=== PATIENT | male | born 2000 | race African-American/Black ===

== ENCOUNTER 2022-04-19 18:44 | Emergency (ER) | payer OTHER, SELFPAY ==
[2022-04-19 19:02] VITALS: BP 124/65; PULSE 77; RESP 16; TEMP 37.9; O2SAT 100; BMI 25.1
--- NOTE | 2022-04-19 19:05 | ED_ITS ---
HPI - General Adult General Time Seen by Provider: 19:05 <Miya Ford MD - Last Filed: 04/19/22 20:41> Date Seen: 04/19/22 <Miya Ford MD - Last Filed: 04/19/22 20:41> Chief complaint: Sore Throat <Miya Ford MD - Last Filed: 04/19/22 20:41> Stated complaint: Swollen Tonsils <Miya Ford MD - Last Filed: 04/19/22 20:41> Time Seen by Provider: 04/19/22 18:47 <Miya Ford MD - Last Filed: 04/19/22 20:41> Source: patient and RN notes reviewed <Miya Ford MD - Last Filed: 04/19/22 20:41> Mode of arrival: ambulatory <Miya Ford MD - Last Filed: 04/19/22 20:41> Limitations: no limitations <Miya Ford MD - Last Filed: 04/19/22 20:41> History of Present Illness HPI narrative: This 21-year-old male is coming in an with bilateral sore throat, swollen tonsils and pain. He has had a history of peritonsillar abscess, had his last incision and drainage of a right peritonsillar abscess 04/20/2021. He had repeat tonsillitis and a left peritonsillar abscess managed clinically within over night hospitalization May 01 to 2020. He reportedly had 2 prior incision and drainage of peritonsillar abscesses prior. He became ill with a sore throat on Tuesday, today is Tuesday. He had progressive worsening sore throat today. He has felt chilled today but not necessarily had any fevers. He last took ibuprofen this morning. He does believe he could swallow Tylenol. He has had a little right otalgia. He remembers having mono when he was younger. No cough, no nausea vomiting or diarrhea, no abdominal pain. <Miya Al MD - Last Filed: 04/19/22 20:41> Related Data Home medications: Home Medications Medication Instructions Recorded Confirmed No Known Home Medications 04/19/22 04/19/22 <Miya Ford MD - Last Filed: 04/19/22 20:41> Allergies/adverse reactions: Allergies Allergy/AdvReac Type Severity Reaction Status Date / Time No Known Drug Allergies Allergy Verified 04/19/22 19:05 <Miya Ford MD - Last Filed: 04/19/22 20:41> [facility] Medical History: Medical History (Updated 04/19/22 @ 20:41 by Miya Ford MD) Tonsil, abscess <Miya Ford MD - Last Filed: 04/19/22 20:41> Social History: Social History Smoking Status: Never smoker Do you use any of these nicotine containing products: None How often do you have a drink containing alcohol: never AUDIT-C Alcohol total score: 0 Non-prescribed substance use: denies use <Miya Ford MD - Last Filed: 04/19/22 20:41> Exam Const: Vital Signs, click to edit/add: Vital Signs - 24 hr 04/19/22 19:02 Temperature 100.3 F H Pulse Rate [Right Pulse Oximeter] 77 Respiratory Rate 16 Blood Pressure [Ri ght Upper Arm] 124/65 Pulse Oximetry 100 Oxygen Delivery Me thod Room Air <Miya Ford MD - Last Filed: 04/19/22 20:41> Vital Signs, click to edit/add: Vital Signs - 24 hr 04/19/22 19:02 Temperature 100.3 F H Pulse Rate [Right Pulse Oximeter] 77 Respiratory Rate 16 Blood Pressure [Ri ght Upper Arm] 124/65 Pulse Oximetry 100 Oxygen Delivery Me thod Room Air <Kev Robles MD - Last Filed: 04/19/22 23:31> Documenting provider has reviewed patient's vital signs: yes <Miya Ford MD - Last Filed: 04/19/22 20:41> Common normals: no apparent distress, average body habitus, oriented x3, no limitations, healthy appearing and alert <Miya Ford MD - Last Filed: 04/19/22 20:41> General appearance: cooperative, comfortable and well kempt <Miya Ford MD - Last Filed: 04/19/22 20:41> Nutritional appearance: thin <Miya Ford MD - Last Filed: 04/19/22 20:41> HENMT: Common normals: normocephalic, head/scalp atraumatic, hearing grossly normal bilaterally, external ears normal, EAC's normal, TM's normal bilaterally (Some cerumen but I can see most of the TMs ), external nose normal, nasal mucous membranes and turbinates normal, moist oral mucous membranes, dentition normal and gingiva normal <MD Shawn Lagunas Last Filed: 04/19/22 20:41> Head and scalp: normocephalic and atraumatic <Miya Ford MD - Last Filed: 04/19/22 20:41> Nose: external nose normal and nasal mucous membranes and turbinates normal <MD Shawn Lagunas Last Filed: 04/19/22 20:41> External ear: external ears normal <MD Shawn Lagunas Last Filed: 04/19/22 20:41> External auditory canal: EAC's normal <MD Shawn Lagunas Last Filed: 04/19/22 20:41> Tympanic membrane: TM's normal bilaterally (Some cerumen but I can see most of the TMs ) <Miya Ford MD - Last Filed: 04/19/22 20:41> Mouth: tongue normal and dysphonia (Some muffling to his voice, able to manage secretions) <MD Shawn Lagunas Last Filed: 04/19/22 20:41> Throat: tonsils abnormal (Symmetric bilateral tonsillar enlargement, mild white exudate) <MD Shawn Lagunas Last Filed: 04/19/22 20:41> Other: Tonsils are nearly touching <MD Shawn Lagunas Last Filed: 04/19/22 20:41> Eye: Common normals: PERRL, EOMs intact bilaterally, conjunctivae normal and no scleral icterus <Miya Ford MD - Last Filed: 04/19/22 20:41> Conjunctiva: conjunctiva(e) normal <Miya Ford MD - Last Filed: 04/19/22 20:41> Pupil: PERRL <Miya Ford MD - Last Filed: 04/19/22 20:41> Neck & C-Spine: Common normals: full ROM, supple, no meningeal signs, no JVD and thyroid normal <Miya Ford MD - Last Filed: 04/19/22 20:41> General: lymphadenopathy (Bilateral anterior) <Miya Ford MD - Last Filed: 04/19/22 20:41> Thyroid: thyroid normal <Miya Ford MD - Last Filed: 04/19/22 20:41> Resp: Common normals: normal respiratory effort, no retractions, no use of accessory muscles and clear to auscultation bilaterally <Miya Al MD - Last Filed: 04/19/22 20:41> Auscultation: clear to auscultation bilaterally <Miya Ford MD - Last Filed: 04/19/22 20:41> Cardio: Common normals: no JVD, regular rate, regular rhythm, S1 normal heart sound, S2 normal heart sound, no gallops, no clicks and no murmurs <Miya Ford MD - Last Filed: 04/19/22 20:41> Rate: regular rate <Miya Ford MD - Last Filed: 04/19/22 20:41> Rhythm: regular rhythm <Miya Ford MD - Last Filed: 04/19/22 20:41> Heart sounds: S1 normal and S2 normal <Miya Ford MD - Last Filed: 04/19/22 20:41> GI: Common normals: Normal to inspection, nondistended, normoactive bowel sounds present, soft to palpation, non-tender, no hepatosplenomegaly and no masses <Miya Ford MD - Last Filed: 04/19/22 20:41> Palpation: soft and no hepatosplenomegaly <Miya oFrd MD - Last Filed: 04/19/22 20:41> Extremity: Common normals: normal to inspection, full ROM, normal capillary refill, no joint enlargement, no clubbing, cyanosis or edema and no pedal edema <Miya Ford MD - Last Filed: 04/19/22 20:41> Neuro: Common normals: oriented x3 <Miya Ford MD - Last Filed: 04/19/22 20:41> Sensorium/orientation: alert <Miya Ford MD - Last Filed: 04/19/22 20:41> Meningeal signs: no meningeal signs <Miya Ford MD - Last Filed: 04/19/22 20:41> Gait (neuro): normal gait <Miya Ford MD - Last Filed: 04/19/22 20:41> Psych: Appearance: well kempt <Miya Ford MD - Last Filed: 04/19/22 20:41> Course Course Hospital Course: This definitely appears to be tonsillitis, will rule out peritonsillar abscess with a soft tissue neck CT IV contrast given his history. We will obviously stab lotion IV, start IV fluids. I am going to given 10 mg IV dexamethasone. Will obtain his labs, he will need antibiotics likely, considering Unasyn at this time. Will get a COVID screen in case he might need another incision and drainage. I have spoken with him and discussed with him that ultimately when he is better he really needs to have a tonsillectomy. He obviously will need that information from ENT and was stressed to him that he really needs to follow up with ENT outpatient. <Miya Ford MD - Last Filed: 04/19/22 20:41> Reevaluation(s) Reevaluation #1: I have called [facility] regarding possible transfer this patient. He needs [facility]. [place] unfortunately not even sure we do have ENT coverage here this evening, we certainly do not have bed availability at this time. With this patient's CT finding having almost 4 peritonsillar abscesses and possible parapharyngeal cellulitis, feel that it is safest for him to transfer. We are waiting call back from ENT service at [facility]. I do know that [facility] system is on magenta, meaning absolutely no transfers. <Miya Ford MD - Last Filed: 04/19/22 20:41> Time: 20:35 <Miya Ford MD - Last Filed: 04/19/22 20:41> Vital Signs Vital signs: Initial Vital Signs Temperature 100.3 F H 04/19/22 19:02 Temperature Source Temporal Artery Scan 04/19/22 19:02 Pulse Rate 77 04/19/22 19:02 Pulse Rhythm 04/19/22 19:02 Respiratory Rate 16 04/19/22 19:02 Blood Pressure 124/65 04/19/22 19:02 Blood Pressure Mean 84 04/19/22 19:02 Blood Pressure Position Sitting 04/19/22 19:02 Pulse Oximetry 100 04/19/22 19:02 Oxygen Delivery Method 04/19/22 19:02 Vital Signs Temperature 100.3 F H 04/19/22 19:02 Pulse Rate 77 04/19/22 19:02 Respiratory Rate 16 04/19/22 19:02 Blood Pressure 124/65 04/19/22 19:02 Pulse Oximetry 100 04/19/22 19:02 Oxygen Delivery Method 04/19/22 19:02 Temperature 100.3 F H 04/19/22 19:02 Pulse Rate 77 04/19/22 19:02 Respiratory Rate 16 04/19/22 19:02 Blood Pressure 124/65 04/19/22 19:02 Pulse Oximetry 100 04/19/22 19:02 Oxygen Delivery Method 04/19/22 19:02 <Miya Ford MD - Last Filed: 04/19/22 20:41> Initial Vital Signs Temperature 100.3 F H 04/19/22 19:02 Temperature Source Temporal Artery Scan 04/19/22 19:02 Pulse Rate 77 04/19/22 19:02 Pulse Rhythm 04/19/22 19:02 Respiratory Rate 16 04/19/22 19:02 Blood Pressure 124/65 04/19/22 19:02 Blood Pressure Mean 84 04/19/22 19:02 Blood Pressure Position Sitting 04/19/22 19:02 Pulse Oximetry 100 04/19/22 19:02 Oxygen Delivery Method 04/19/22 19:02 Vital Signs Temperature 100.3 F H 04/19/22 19:02 Pulse Rate 77 04/19/22 19:02 Respiratory Rate 16 04/19/22 19:02 Blood Pressure 124/65 04/19/22 19:02 Pulse Oximetry 100 04/19/22 19:02 Oxygen Delivery Method 04/19/22 19:02 Temperature 100.3 F H 04/19/22 19:02 Pulse Rate 77 04/19/22 19:02 Respiratory Rate 16 04/19/22 19:02 Blood Pressure 124/65 04/19/22 19:02 Pulse Oximetry 100 04/19/22 19:02 Oxygen Delivery Method 04/19/22 19:02 <Kev Robles MD - Last Filed: 04/19/22 23:31> Medical Decision Making MDM Narrative Medical decision making narrative: This patient comes in with recurrent tonsillar and peritonsillar abscesses. CT imaging shows evidence of several abscesses that are around 1 cm in size. There is no Ear Nose and Throat resources available here. I did speak with Dr. Ogden at [facility] who recommended transfer to their emergency department for further evaluation and treatment. Dr. Fajardo is the accepting physician in the emergency department there. The patient is maintaining sufficient airway. He will be able to be transported by ambulance. <Kev Robles MD - Last Filed: 04/19/22 23:31> Lab Data Lab results reviewed: Yes I reviewed the patient's lab results <Miya Ford MD - Last Filed: 04/19/22 20:41> Labs: Lab Results 04/19/22 04/19/22 04/19/22 Range/Units 19:22 19:22 19:22 WBC 15.81 H (4.50-11.00) K/uL RBC 4.58 (4.30-5.90) m/uL Hgb 13.5 (13.5-17.5) gm/dL Hct 40.8 (37.0-53.0) % MCV 89 (80-100) fL MCH 30 (26-34) pg MCHC 33 (32-36) gm/dL RDW Coeff of Danilo 12.8 (11.5-15.5) % Plt Count 289 (140-440) K/uL Neut % (Auto) 77.0 H (42.0-72.0) % Lymph % (Auto) 13.0 L (20-44) % Ransom % (Auto) 9.1 (0.0-11.0) % Eos % (Auto) 0.3 (0.0-7.0) % Baso % (Auto) 0.3 (0.0-3.0) % Neut # (Auto) 12.20 H (1.7-7.0) K/uL Lymph # (Auto) 2.10 (0.90-2.90) K/uL Ransom # (Auto) 1.40 H (0.00-0.90) K/UL Eos # (Auto) 0.00 (0.00-0.50) K/uL Baso # (Auto) 0.00 (0.00-0.30) K/uL Abs Immat Gran (auto) 0.04 (0.00-0.30) K/uL Sodium 139 (135-149) mmol/L Potassium 3.9 (3.6-5.1) mmol/L Chloride 100 (96-114) mmol/L Carbon Dioxide 29 (20-32) mmol/L BUN 9 (5-24) mg/dL Creatinine 0.9 (0.5-1.5) mg/dL Estimated Creat Clear 143.70 Estimated GFR 125 ml/min Glucose 87 (60-115) mg/dL Calcium 9.1 (8.4-10.6) mg/dL C-Reactive Protein 3.5 H (0.5-1.0) mg/dL SARS-CoV-2 (PCR) (Negative) Monoscreen Negative (Negative) Group A Strep DNA (No Detected) 04/19/22 04/19/22 Range/Units 19:25 19:38 WBC (4.50-11.00) K/uL RBC (4.30-5.90) m/uL Hgb (13.5-17.5) gm/dL Hct (37.0-53.0) % MCV (80-100) fL MCH (26-34) pg MCHC (32-36) gm/dL RDW Coeff of Danilo (11.5-15.5) % Plt Count (140-440) K/uL Neut % (Auto) (42.0-72.0) % Lymph % (Auto) (20-44) % Ransom % (Auto) (0.0-11.0) % Eos % (Auto) (0.0-7.0) % Baso % (Auto) (0.0-3.0) % Neut # (Auto) (1.7-7.0) K/uL Lymph # (Auto) (0.90-2.90) K/uL Ransom # (Auto) (0.00-0.90) K/UL Eos # (Auto) (0.00-0.50) K/uL Baso # (Auto) (0.00-0.30) K/uL Abs Immat Gran (auto) (0.00-0.30) K/uL Sodium (135-149) mmol/L Potassium (3.6-5.1) mmol/L Chloride (96-114) mmol/L Carbon Dioxide (20-32) mmol/L BUN (5-24) mg/dL Creatinine (0.5-1.5) mg/dL Estimated Creat Clear Estimated GFR ml/min Glucose (60-115) mg/dL Calcium (8.4-10.6) mg/dL C-Reactive Protein (0.5-1.0) mg/dL SARS-CoV-2 (PCR) Negative SARS-CoV-2 (Negative) Monoscreen (Negative) Group A Strep DNA NOT DETECTED (No Detected) <Miya Ford MD - Last Filed: 04/19/22 20:41> Lab Results 04/19/22 04/19/22 04/19/22 Range/Units 19:22 19:22 19:22 WBC 15.81 H (4.50-11.00) K/uL RBC 4.58 (4.30-5.90) m/uL Hgb 13.5 (13.5-17.5) gm/dL Hct 40.8 (37.0-53.0) % MCV 89 (80-100) fL MCH 30 (26-34) pg MCHC 33 (32-36) gm/dL RDW Coeff of Danilo 12.8 (11.5-15.5) % Plt Count 289 (140-440) K/uL Neut % (Auto) 77.0 H (42.0-72.0) % Lymph % (Auto) 13.0 L (20-44) % Ransom % (Auto) 9.1 (0.0-11.0) % Eos % (Auto) 0.3 (0.0-7.0) % Baso % (Auto) 0.3 (0.0-3.0) % Neut # (Auto) 12.20 H (1.7-7.0) K/uL Lymph # (Auto) 2.10 (0.90-2.90) K/uL Ransom # (Auto) 1.40 H (0.00-0.90) K/UL Eos # (Auto) 0.00 (0.00-0.50) K/uL Baso # (Auto) 0.00 (0.00-0.30) K/uL Abs Immat Gran (auto) 0.04 (0.00-0.30) K/uL Sodium 139 (135-149) mmol/L Potassium 3.9 (3.6-5.1) mmol/L Chloride 100 (96-114) mmol/L Carbon Dioxide 29 (20-32) mmol/L BUN 9 (5-24) mg/dL Creatinine 0.9 (0.5-1.5) mg/dL Estimated Creat Clear 143.70 Estimated GFR 125 ml/min Glucose 87 (60-115) mg/dL Calcium 9.1 (8.4-10.6) mg/dL C-Reactive Protein 3.5 H (0.5-1.0) mg/dL SARS-CoV-2 (PCR) (Negative) Monoscreen Negative (Negative) Group A Strep DNA (No Detected) 04/19/22 04/19/22 Range/Units 19:25 19:38 WBC (4.50-11.00) K/uL RBC (4.30-5.90) m/uL Hgb (13.5-17.5) gm/dL Hct (37.0-53.0) % MCV (80-100) fL MCH (26-34) pg MCHC (32-36) gm/dL RDW Coeff of Danilo (11.5-15.5) % Plt Count (140-440) K/uL Neut % (Auto) (42.0-72.0) % Lymph % (Auto) (20-44) % Ransom % (Auto) (0.0-11.0) % Eos % (Auto) (0.0-7.0) % Baso % (Auto) (0.0-3.0) % Neut # (Auto) (1.7-7.0) K/uL Lymph # (Auto) (0.90-2.90) K/uL Ransom # (Auto) (0.00-0.90) K/UL Eos # (Auto) (0.00-0.50) K/uL Baso # (Auto) (0.00-0.30) K/uL Abs Immat Gran (auto) (0.00-0.30) K/uL Sodium (135-149) mmol/L Potassium (3.6-5.1) mmol/L Chloride (96-114) mmol/L Carbon Dioxide (20-32) mmol/L BUN (5-24) mg/dL Creatinine (0.5-1.5) mg/dL Estimated Creat Clear Estimated GFR ml/min Glucose (60-115) mg/dL Calcium (8.4-10.6) mg/dL C-Reactive Protein (0.5-1.0) mg/dL SARS-CoV-2 (PCR) Negative SARS-CoV-2 (Negative) Monoscreen (Negative) Group A Strep DNA NOT DETECTED (No Detected) <Kev Robles MD - Last Filed: 04/19/22 23:31> Imaging Data CT- Other: Attestation: I have reviewed the pertinent imaging results. <Miya Al MD - Last Filed: 04/19/22 20:41> Radiologist's impression: Patient: CAROL HALEY Facility:?[facility] Patient ID:?[id number] Site Patient ID:?[id number]. Site :?[id number] Study:?CT ST Neck W/91CC ISOVUE 370-04/19/2022 7:35:14 PM Ordering Physician:Chana Holliday Preliminary Report: IMPRESSION: 1. Enlarged tonsils [id number]-left. 2. Rim enhancing low density left peritonsillar 10 mm suspicious for abscess. 3. Larger rim enhancing area of low density right peritonsillar also suspicious for abscess 14 mm. 4. Additional right peritonsillar and marginating low dense possible abscess 8 mm image 27. 5. Phlegmon with infiltration or cellulitis within the right parapharyngeal space. 6. Possible additional early low-dense abscess which is probably a peritonsillar or retropharyngeal on the right side image 27. There is effacement along the lateral margin of the pharynx at this level. 7. Multiple reactive appearing cervical lymph nodes. 8. No laryngeal or infraglottic airway compromise. 9. There is some patchy alveolar airspace opacity which could suggest some pneumonia within the right upper lobe. Dictated by Abner Zhu MD @ 04/19/2022 8:00:41 PM Read by:?Abner Zhu MD @ 04/19/2022 20:00:46 <Miya Ford MD - Last Filed: 04/19/22 20:41> Critical Care Time Critical Care Time Critical Care Time: No <Miya Ford MD - Last Filed: 04/19/22 20:41> Discharge Plan Discharge Clinical Impression: Peritonsillar abscess, Cellulitis of parapharyngeal space <Miya Ford MD - Last Filed: 04/19/22 20:41> Patient Disposition: Xfer [facility] <Miya Ford MD - Last Filed: 04/19/22 20:41> Condition: Unchanged <Miya Ford MD - Last Filed: 04/19/22 20:41> Prescriptions: No Action No Known Home Medications <Miya Ford MD - Last Filed: 04/19/22 20:41> Stand Alone Forms: [facility] Info Instructions <Miya Ford MD - Last Filed: 04/19/22 20:41>
--- NOTE | 2022-04-19 19:12 | CRLHL7_ITS ---
For Patients: As a result of the Century Cures Act, medical imaging exams and procedure reports are released immediately into your electronic medical record. You may view this report before your referring provider. If you have questions, please contact your health care provider. INDICATION: Right tonsillar pain. History of peritonsillar abscess. TECHNIQUE: Performed with IV contrast. Contrast: 91 cc of Isovue 370. COMPARISON: 05/01/2021 FINDINGS: There is marked enlargement of both oral pharyngeal tonsils, with some progression from 05/01/2021. Moderate compromise of the oropharyngeal airway. The nasopharyngeal, glottic and subglottic airway is widely patent. Peripherally enhancing abscesses are seen in the superolateral aspect of the right oropharyngeal tonsil, measuring 15 and 7 mm and enlarged from 05/01/2021. A smaller peripherally enhancing 9 mm abscess is seen at the caudal aspect of the left oropharyngeal tonsil, new from 05/01/2021. The large 15 mm peripherally enhancing abscess previously seen at the upper pole of the left oropharyngeal tonsil on 05/01/2021 is no longer identified. No other mucosal pathology is identified in the pharynx or larynx. The lingual and nasopharyngeal tonsils are not enlarged. There is bilateral lymphadenopathy in levels 1-3 and 5. The largest nodes are in levels 2A on both sides, measuring at least 36 mm on the right and 26 mm on the left. The lymphadenopathy is progressed from 05/01/2021. Streaking of the tissue planes and subcutaneous fat in the neck consistent with inflammation. Patchy indeterminate alveolar parenchymal opacities in the posterolateral aspect of the right lung, new from 05/01/2021. The included portion of the left lung is clear. No worrisome skeletal lesions are identified. The visualized portions of the intracranial contents are unremarkable. IMPRESSION: 1. Marked enlargement of both oropharyngeal tonsils, mildly progressed from 05/01/2021. 2. Peripherally enhancing abscesses are seen in the superolateral aspect of the right oropharyngeal tonsil, measuring 15 and 7 mm. 3. Smaller peripherally enhancing abscess in the caudal aspect of the left oropharyngeal tonsil measuring 9 mm. 4. The larger 15 mm abscess previously seen in the superior aspect of the left or pharyngeal tonsil is no longer identified. 5. Moderate lymphadenopathy in the upper neck. 6. New 35 mm patchy alveolar opacity in the right lung, compatible with pneumonia. Please note that all CT scans at this facility use dose modulation, iterative reconstruction, and/or weight-based dosing when appropriate to reduce radiation dose to as low as reasonably achievable. Dictated by Noel Young MD @ 04/21/2022 9:24:27 AM (Electronically Signed)
[2022-04-19 19:27] LABS: Basophils Percent Auto 0.3 % (0.0-3.0); Eosinophils Percent Auto 0.3 % (0.0-7.0); Hematocrit 40.8 % (37.0-53.0); Hemoglobin* 13.5 gm/dL (13.5-17.5); Immature Granulocytes Abs Auto 0.04 K/uL (0.00-0.30); Mean Corpuscular HGB Conc 33 gm/dL (32-36); Mean Corpuscular Hemoglobin 30 pg (26-34); Mean Corpuscular Volume 89 fL (80-100); Monocytes Percent Auto 9.1 % (0.0-11.0); Platelet Count* 289 K/uL (140-440); RDW Coefficient of Variation % 12.8 % (11.5-15.5); Red Blood Count 4.58 m/uL (4.30-5.90); Slide Review Reflex No; White Blood Count* 15.81 K/uL (4.50-11.00)
[2022-04-19 19:36] LABS: Mono Screen* Negative (Negative)
[2022-04-19 19:39] LABS: Chloride* 100 mmol/L (96-114); Potassium* 3.9 mmol/L (3.6-5.1); Sodium* 139 mmol/L (135-149)
[2022-04-19] MEDS: ACETAMINOPHEN 500 MG TABLET 1000 MG PO (19:40)
[2022-04-19 19:42] LABS: Creatinine* 0.9 mg/dL (0.5-1.5); Estimated Glomerular Filt Rate 125 ml/min
[2022-04-19 19:43] LABS: Blood Urea Nitrogen* 9 mg/dL (5-24); Calcium* 9.1 mg/dL (8.4-10.6); Carbon Dioxide* 29 mmol/L (20-32); Glucose* 87 mg/dL (60-115)
[2022-04-19 19:46] LABS: C Reactive Protein* 3.5 mg/dL (0.5-1.0)
--- NOTE | 2022-04-19 20:15 | CRLHL7_ITS ---
For Patients: As a result of the Cures Act, medical imaging exams and procedure reports are released immediately into your electronic medical record. You may view this report before your referring provider. If you have questions, please contact your health care provider. INDICATION: Cough. TECHNIQUE: Chest 1 view. COMPARISON: None. FINDINGS: Cardiovascular and mediastinum: Heart size and vasculature are normal in caliber and appearance. Lungs and pleural spaces: Right upper lung patchy opacity. No sign of pleural effusion. No pneumothorax. Bones and soft tissues: No significant findings. IMPRESSION: Right upper lung patchy opacity, likely representing pneumonia. Dictated by Rangel Houston MD @ 04/19/2022 9:15:17 PM (Electronically Signed)
[2022-04-19] MEDS: 0.9 % SODIUM CHLORIDE 1000 ml 1,000 ML 500 ML IV (20:19)
[2022-04-19] MEDS: AMPICILLIN/SULBACTAM 3 GM in 0.9 % SODIUM CHLORIDE Mini-bag 100 ML IVPB (20:19)
[2022-04-19] MEDS: dexAMETHasone 10 MG/ML inj IVP (20:19)
[2022-04-19 20:22] LABS: Strep A DNA Probe* NOT DETECTED (No Detected)
[2022-04-19 21:53] LABS: SARS PCR* Negative SARS-CoV-2 (Negative)
[2022-04-19 23:29] VITALS: BP 113/67; PULSE 58; RESP 16; TEMP 37.6; O2SAT 98
--- NOTE | 2022-04-19 23:47 | ED.NURSE ---
report to [facility], pt transported to [facility]. Pt did get gold necklace back, in [facility] on [facility] transport.
== END 2022-04-19 23:51 | disposition short-term general hospital (02) ==
PROVIDERS: Emergency Provider Family Medicine
DX: J36 Peritonsillar abscess (principal); J39.1 Other abscess of pharynx
CPT/HCPCS: 36415; 70491; 71045; 80048; 85025; 86140; 86308; 87635; 87651; 96361; 96365; 96375; 99284; 99285; A9270; J0295; J1100; J7030; Q9967

== ENCOUNTER 2022-04-19 23:45 | Outpatient (CLI) | payer OTHER, SELFPAY | END 2022-04-19 23:46 | disposition home or self-care (01) | LOC: AMB 04-24 21:36 | PROVIDERS: Visit Provider Family Medicine | DX: J03.90 Acute tonsillitis, unspecified (principal) | CPT/HCPCS: A0425; A0428 ==

== ENCOUNTER 2022-09-06 07:39 | Day surgery (SDC) | payer OTHER, SELFPAY ==
[2022-09-06] VITALS (25 sets, daily range): BP systolic 90–157; BP diastolic 46–110; PULSE 43–116; RESP 16–18; TEMP 36.2–37; O2SAT 95–100; BMI 23.8
[2022-09-06] MEDS: MIDAZOLAM HCL 1 MG/ML inj IVP (07:01)
[2022-09-06] MEDS: fentaNYL 100 MCG/2 ML inj IVP (07:01)
[2022-09-06] MEDS: LACTATED RINGERS 1000 ML 1,000 ML 100 ML IV ×2 (07:30→10:10)
--- NOTE | 2022-09-06 09:16 | SUR.PREOP ---
TIME?OUT:?0910 PT/RN/MDA?VERIFICATION?OF?SURGICAL?SITE,?PROCEDURE,?AND?CONSENT OBTAINED?PRIOR?TO?INVASIVE?PROCEDURE.0910 right shoulder
--- NOTE | 2022-09-06 09:23 | P.NB_ITS ---
Nerve Block Nerve Block Time Seen by Provider: 09:07 Date Seen: 09/06/22 Type of block requested by surgeon for post-operative analgesia: supraclavicular Side: right Time out performed: Yes Verification of patient name: Yes Verification of date of : Yes Site marking: site marked Name of person performing procedure: Yordy Gan Continuous monitoring Was continuous monitoring of O2 sat, B/P, director of cardiac cath lab, recorded every 15 minutes?: Yes Procedure Checklist: sterile prep Ultrasound guided. Images saved: Yes Medications given in 5ml increments after negative aspiration: Ropivicaine %: 0.5 mL: 20 Needle gauge: 20 Decadron (mg): 10 Precedex (mcg): 20 Patient tolerated procedure well: Yes Block Charges Block Charge (with Pro Fee): Brachial Plexus Use of Ultrasound Machine for Block: Yes- US Guidance/pain block
[2022-09-06] MEDS: CEFAZOLIN 2 GM in 0.9 % SODIUM CHLORIDE Mini-bag 100 ML IVPB (10:15)
[2022-09-06] MEDS: SODIUM CHLORIDE IRRIG SOLUTION 3,000 ML, EPINEPHrine 1 MG IRRIGATION ×4 (10:40→12:15)
--- NOTE | 2022-09-06 13:29 | W.ANESCHARGE ---
Anesthesia Charges Start Date/Time Anesthesia Start Date: 09/06/22 Anesthesia Start Time: 10:04 Stop Date/Time Anesthesia Stop Date: 09/06/22 Anesthesia Stop Time: 13:27 Summary Emergency: No
[2022-09-06] MEDS: MEPERIDINE 25 MG/ML INJ 12.5 MG IVP (13:30)
--- NOTE | 2022-09-06 13:40 | PM.ORPRC ---
Procedure Note Date of procedure: 09/08/22 Procedure: PREOPERATIVE DIAGNOSES: 1. Right shoulder AC sprain-grade 3 (including CC ligament disruption) with gross instability during anterior shoulder translation which the patient could do voluntarily or occurred involuntarily. 2. 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 Right shoulder AC sprain-grade 3 (including CC ligament disruption) with gross instability during anterior shoulder translation which the patient could do voluntarily or occurred involuntarily. 2. 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 Right shoulder arthroscopic AC/CC ligament reconstruction with Arthrex dog bone technique and anterior tibialis 8.0 mm diameter allograft. 2. Right shoulder arthroscopic Bankart repair 3. Right shoulder arthroscopic limited synovectomy/debridement SURGEON: Jacques Jorgensen MD WASTE HANDLING TECHNICIAN: Tino Montana PA-C; Dann BHATT. Of note, a skilled assistant speech language pathologist was critical for this case to aide in patient positioning, suture manipulation, arm positioning, instrument positioning, tunnel drilling, camera manipulation, skill to perform the above, and closure. ANESTHESIA: General plus preoperative supraclavicular block. IMPLANTS: Arthrex dog bone button (x2); anterior tibialis 8.0 mm diameter allograft; Arthrex 1.6 mm knotless FiberTak (x4) COMPLICATIONS: None evident INDICATIONS: The patient is a pleasant, 22-year-old male who has experienced right shoulder pain that has been increasing in recent time. He has battled recurrent shoulder instability through his football play but has also noted his right distal clavicle is rather unstable relative to say acromion. When he anteriorly translate his humeral head, the clavicle becomes extremely prominent and displaces posteriorly and superiorly. He does recall a football related injury and notes he tried to play through it this past season with some difficulty. He would like to continue to play a contact sport of football. We discussed the pros and cons of nonoperative and operative considerations. They tried and failed the nonoperative route and thus surgery was indicated for stabilization of the distal clavicle. Given the chronicity, allograft was chosen for augmentation of biology. FINDINGS: Exam under anesthesia revealed substantially elevated distal clavicle, . Especially when anteriorly translating his humeral head. It was reducible to neutral posterior matching his other side. Anterior posterior translation showed grade 2. No grade 3. Intra-articularly, the articular cartilage was healthy overall. Intact subscapularis and long head of the biceps tendon. The labral tissue was torn from the 1 o'clock-5 o'clock position. The distal clavicle was grossly unstable particular with anterior translation of the humeral head but he with manipulation of the shoulder in general. It was reducible. There were small loose bodies within the shoulder joint. These were less than 5 mm in diameter. They could be removed with the shaver. PROCEDURE: Following a thorough discussion of risks, benefits, and alternatives, consent was obtained and the right shoulder was marked. The patient was brought to the operating room and placed supine on the operating table. Induction of anesthesia was completed after preoperative supraclavicular block was administered in preop holding. Appropriate time out was performed identifying proper patient, site, and procedure. 1 g IV Ancef was administered within 1 hour of incision preoperatively. The right upper extremity was prepped and draped in the appropriate sterile fashion using ChloraPrep prep. This was after the patient was positioned in the beach chair with their head in neutral alignment and all bony prominences well padded. The shoulder was insufflated with 20mL of normal saline via an 18g spinal needle from a posterior approach. An 11 blade skin incision allowed a blunt trochar to be inserted and diagnostic arthroscopy to be performed with the findings as noted above. An ASL portal was established with an outside in technique. This allowed the probe to be inserted and confirm the diagnostic arthroscopic findings. The rotator cuff was found to be intact including the subscapularis. The biceps tendon was intact in appropriate position. The glenohumeral joint showed healthy chondral surfaces. The labrum was intact with no significant tearing. There is a small recess in the anterior labrum consistent with a Oakes complex. No loose bodies were identified within the pouch or the gutters. The shaver and Hilliard cautery device were then inserted and allowed debridement of the rotator cuff interval tissue including the synovium and capsular tissue. This allowed visualization of the coracoid near its tip. From here, we tracked the coracoid back towards its base debriding the synovial tissue. Great caution was taken to avoid any neurologic structures in close proximity. To help with the debridement, a 2nd anterior 0 inferior portal was established. This allowed us to visualize from posterior approach with 70 degree scope and performed both tissue retraction and debridement through the 2 anterior portals. The CC ligament Arthrex guide was placed against the base of the coracoid. Incision was made over the distal portion of the clavicle sparing the AC joint capsule itself. Sharp incision through skin and Bovie cautery through subcutaneous tissue allowed identification of the crossing fascia. This was divided and superior lastly elevated from the distal clavicle. Again we spared the AC joint capsule itself. After exposing the clavicle approximately 32-35 mm from the AC joint itself, the Arthrex guide was reassessed. Again the subcoracoid portion was placed against the base, the superior clavicle portion was placed in the middle the bone. The cannulated drill bit was then passed through 4 cortices and confirmed to have excellent location at the base of the coracoid in the center of the bone. The central pin was removed from the cannulated drill, and a Nitinol wire was passed. The loop was retracted out the in 0.5 mm anterior cannula. This allowed us to shuttle the dog bone sutures up through the drill holes with the dog bone itself underneath the coracoid on the deep surface. We then turned our attention to the allograft passage. Initially, switching stick was passed from the posterior aspect of the clavicle along the medial border of the coracoid. It was then cannulated, and a fiber stick suture passed through this & grasped out the anterior cannula. The allograft had been on tension throughout the case to take any creep out of it. At this time, we passed the sutures through this shuttling stitch and then did the same thing via an anterolateral passage. The other end of the sutures were passed through this, an allograft was confirmed to be around the coracoid and up and around the clavicle appropriately. Prior to cande down the clavicle, we then turned our attention to the Bankart repair. Through the anterior portal, a liberator elevator was utilized for tissue preparation along with a rasp and shaver. At this juncture, an anteroinferior anchor was placed at approximately the 4:30 position using a knotless fibertak. The anterior inferior glenohumeral ligament was then captured with a suture Lasso, sutures passed, and the anchor mechanism engaged. This allowed excellent reapproximation of this IGHL anterior band. A further inferior anchor (knotless fibertak) was then placed at approximately the 5:30 position with reapproximation of that far inferior labrum. Next, 2 more knotless fibertak suture anchors were placed further up the clock face at approximately the [3:30 and 2:30 positions. When anchors had been completed, this fixation was reprobed and found to be stable. The humerus went from a anteriorly and inferiorly resting subluxated position to a reduced position within the glenohumeral joint and was now stable at the end of the case. The drive-through sign was eliminated as well. We then returned to the CC ligament/clavicle stabilization portion. After reducing the clavicle manually with direct pressure, the other dog bone button was attached to the sutures, and these were initially tied and confirmed to have proper reduction. Multiple throws were placed in the fiber tape sutures and good holding of the dog bone was visualized. The tails of the allograft were then tied and held together with # 0 Vicryl passed in [id number] fashion multiple times. The remaining tails of the allograft were cut and discarded. Again the distal clavicle was checked and found to be smooth against the acromion consistent with an anatomic location. The humeral head was stressed including the anterior translated posterior and no further displacement of the distal clavicle visualized. The preoperative pathology had been corrected. Instruments removed, excess fluid was drained from the shoulder, and irrigation of the clavicle incision was performed. Closure was then performed with # 0 Vicryl for the deep fascia. 2-0 Vicryl for the subcutaneous and 3-0 Monocryl for subcuticular closure. Dressings were applied, sling was applied, and the patient was awoken from anesthesia and transferred the PACU in stable condition. A skilled assistant speech language pathologist was critical for this case to aid in patient positioning, limb positioning, skill to manipulate arthroscopic instruments and camera, suture management, patient safety, and closure. PLAN: 1. Elbow, forearm, wrist and digit range of motion as tolerated. 2. Encouraged ice. 3. Percocet for pain as needed. 4. Sling at all times except for ROM and showering and pendulums. 5. Follow up with PA in 1-2 weeks for wound check. Initiate PT via his crew trainer (Leonel) at [facility]
[2022-09-06] MEDS: fentaNYL 100 MCG/2 ML inj 50 MCG IVP ×2 (13:54→14:05)
[2022-09-06] MEDS: OxyCODONE/APAP 5-325 TABLET 1 TAB PO (14:26)
== END 2022-09-06 15:39 | disposition home or self-care (01) ==
PROVIDERS: Visit Provider Orthopaedic Surgery Sports Medicine
PROC: (CPT 29806; principal; 2022-09-06 09:00)
DX: S43.51XA Sprain of right acromioclavicular joint, initial encounter (principal); M24.411 Recurrent dislocation, right shoulder; S43.81XA Sprain of other specified parts of right shoulder girdle, initial encounter; S43.431A Superior glenoid labrum lesion of right shoulder, initial encounter; M25.511 Pain in right shoulder; M25.311 Other instability, right shoulder
CPT/HCPCS: 23552; 29806; 29822; 01630; 64415; 76942; A9270; C1713; C1762; J0171; J0330; J0690; J1100; J2175; J2250; J2405; J2704; J2795; J3010; J7120

== ENCOUNTER 2023-03-05 09:33 | Emergency (ER) | payer MEDICAID, SELFPAY ==
[2023-03-05 09:38] VITALS: BP 119/77; PULSE 95; RESP 20; TEMP 36.3; O2SAT 98; BMI 24.4
--- NOTE | 2023-03-05 09:44 | ED.GENADULT ---
HPI - General Adult General Time Seen by Provider: 09:44 Date Seen: 03/05/23 Chief complaint: Sore Throat Stated complaint: swollen tonsils Time Seen by Provider: 03/05/23 09:44 Source: patient and RN notes reviewed Mode of arrival: ambulatory Limitations: no limitations History of Present Illness HPI narrative: This 22-year-old male is coming in with sore throat, right side worse. He has a history tonsillitis and peritonsillar abscesses. He has had incision and drainage of his peritonsillar abscess before, I believe I have seen him 2 times with similar presentation and he has had other encounters with other providers. 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 His throat started hurting him last night at about 10:00 p.m., was bothering him overnight. He had some sweats overnight. Maybe a little cough. His speech is a little altered but not as bad as when I have seen him on prior encounters. Is still swallowing but painful. Related Data Home Medications Medication Instructions Recorded Confirmed No Known Home Medications 09/16/22 11/26/22 Allergies Allergy/AdvReac Type Severity Reaction Status Date / Time No Known Drug Allergies Allergy Verified 12/03/22 10:25 Review of Systems Narrative: As per HPI. PFS PFS Medical History Tonsil, abscess ?J36 - Peritonsillar abscess (ICD-10) Surgical History S/P arthroscopy of right shoulder (09/06/22) ?Z98.890 - Other specified postprocedural states (ICD-10) Family History Father Diabetes Social History Smoking Status: Never smoker Do you use any of these nicotine containing products: None How often do you have a drink containing alcohol: never How often do you have six or more drinks on one occasion: Never AUDIT-C Alcohol total score: 0 Non-prescribed substance use: denies use Caffeine: Yes (pop) Exam Const: Vital Signs, click to edit/add: Vital Signs - 24 hr 03/05/23 09:38 03/05/23 09:45 Temperature 97.3 F L Pulse Rate [Right Pulse Oximeter] 95 Respiratory Rate 20 Blood Pressure [Ri ght Upper Arm] 119/77 Pulse Oximetry 98 97 Oxygen Delivery Me thod Room Air 22-year-old male ambulatory into the ED of his own accord. He is alert, interactive, no apparent distress. Speech slightly altered but would not say it is ?muffled?. He is managing his own secretions. Pupils are equal round, sclera clear. Neck is supple, no cervical adenopathy noted. Oropharynx reveals normal oral mucosa, 3 to 4+ right erythematous tonsil without exudates, left is 2+ erythematous without exudates, still can see the posterior pharynx on the left side. Tongue is normal, dentition good repair. Lungs are clear to auscultation, no wheezing or crackles. Breathing easily on room air. CV regular rate and rhythm no murmur, normal S1 and S2. He is slightly sweaty but no rash noted on skin visualized. Documenting provider has reviewed patient's vital signs: yes Course Course Hospital Course: Patient obviously has tonsillitis again. Will obtain strep and mono spot, full complement of labs including CBC. I am going to initiate IV Unasyn given his recurrent history of this, he has had this multiple times. He has had more than 1 surgical peritonsillar abscess. Will be getting soft tissue neck CT given the size disparity on the right to ensure no peritonsillar abscess. Reevaluation(s) Time of Reevaluation #1: 11:48 Reevaluation #1: Reviewed with patient the plan. Reviewed my discussion with ENT. He is in agreement with this. Reviewed labs. Consultations Consultation #1: Called ENT Dr. Carolina. Reviewed case. I believe this patient may have an initial consultation with him on March 10, he would like him to keep that and he will see would he can do to accelerate his tonsillectomy. He would recommend 1 subsequent further dose of IV antibiotics today and then transition to orals. Time: 11:35 Vital Signs Vital signs: Initial Vital Signs Temperature 97.3 F L 03/05/23 09:38 Temperature Source Temporal Artery Scan 03/05/23 09:38 Pulse Rate 95 03/05/23 09:38 Respiratory Rate 20 03/05/23 09:38 Blood Pressure 119/77 03/05/23 09:38 Blood Pressure Mean 91 03/05/23 09:38 Blood Pressure Position Sitting 03/05/23 09:38 Pulse Oximetry 98 03/05/23 09:38 Oxygen Delivery Method Room Air 03/05/23 09:38 Vital Signs Temperature 97.3 F L 03/05/23 09:38 Pulse Rate 95 03/05/23 09:38 Respiratory Rate 20 03/05/23 09:38 Blood Pressure 119/77 03/05/23 09:38 Pulse Oximetry 98 03/05/23 09:38 Oxygen Delivery Method Room Air 03/05/23 09:38 Temperature 97.3 F L 03/05/23 09:38 Pulse Rate 95 03/05/23 09:38 Respiratory Rate 20 03/05/23 09:38 Blood Pressure 119/77 03/05/23 09:38 Pulse Oximetry 97 03/05/23 09:45 Oxygen Delivery Method Room Air 03/05/23 09:38 Medical Decision Making Lab Data Lab results reviewed: Yes I reviewed the patient's lab results Labs: Lab Results 03/05/23 Range/Units 09:45 WBC 18.06 H (4.50-11.00) K/uL RBC 4.88 (4.30-5.90) m/uL Hgb 14.1 (13.5-17.5) gm/dL Hct 43.5 (37.0-53.0) % MCV 89 (80-100) fL MCH 29 (26-34) pg MCHC 32 (32-36) gm/dL RDW Coeff of Danilo 12.4 (11.5-15.5) % Plt Count 241 (140-440) K/uL Neut % (Auto) 83.1 H (42.0-72.0) % Lymph % (Auto) 7.2 L (20-44) % Butler % (Auto) 9.2 (0.0-11.0) % Eos % (Auto) 0.1 (0.0-7.0) % Baso % (Auto) 0.1 (0.0-3.0) % Neut # (Auto) 15.00 H (1.7-7.0) K/uL Lymph # (Auto) 1.30 (0.90-2.90) K/uL Butler # (Auto) 1.70 H (0.00-0.90) K/UL Eos # (Auto) 0.00 (0.00-0.50) K/uL Baso # (Auto) 0.00 (0.00-0.30) K/uL Abs Immat Gran (auto) 0.10 (0.00-0.30) K/uL Imm/Tot Granulo (auto) 0.3 % Sodium 138 (135-149) mmol/L Potassium 3.5 L (3.6-5.1) mmol/L Chloride 101 (96-114) mmol/L Carbon Dioxide 24 (20-32) mmol/L BUN 11 (5-24) mg/dL Creatinine 0.9 (0.5-1.5) mg/dL Estimated Creat Clear 142.51 Estimated GFR 125 ml/min Glucose 101 (60-115) mg/dL Calcium 9.5 (8.4-10.6) mg/dL C-Reactive Protein 3.5 H (0.5-1.0) mg/dL Monoscreen Negative (Negative) Group A Strep DNA NOT DETECTED (Not Detectd) Imaging Data CT soft tissue neck: Attestation: I have reviewed the pertinent imaging results. Radiologist's impression: Patient: CAROL HALEY Facility:?[facility] Patient ID:?[id number] Site Patient ID:?[id number]. Site :?[id number] Study:?CT ST Neck W/ 89CC [id number]/8/2023 10:10:47 AM Ordering Physician:?Logan Holliday Final Report: INDICATION: Tonsilitis, right sided throat pain HISTORY: Tonsillitis. Right-sided throat pain. COMPARISON: 04/17/2021. 05/01/2021. 04/19/2022. Technique: CT of the neck. 89 cc of Isovue 370 IV. Coronal/sagittal reconstruction images. Findings: There is no abnormal contrast enhancement within the posterior fossa or supratentorial brain. Appropriate enhancement of the dural venous sinuses and vessels of the apache Orozco. Landmarks in the nasopharynx are preserved. Fossa of Rosenmuller and torus tubarius are symmetric. There is generalized enlargement of the palatine tonsils, but no drainable fluid collection is seen today. This is seen best on series 3, image 29. There is no displacement of the parapharyngeal fat. Floor of the mouth appears intact. The thyroid gland is symmetric. The parotid space, carotid space, cnc milling machine operator space, paravertebral space, and infratemporal fossa within normal limits. The interspace appears normal. Superior mediastinum is normal. The lung apices are within normal limits. No endobronchial mass. There is no resorptive atelectasis. The prior CT scan described a pulmonary infiltrate in the right upper lobe, posterior segment. This was also seen on the curb machine operator image. It is not present today. There are bilateral, symmetric, primarily suprahyoid lymph nodes at level 2 B, which are decreased in size and number when compared with 03/2022. The bone windows demonstrate no suspicious bone lesions. Spinal canal and neural foramina are patent. Polypoid mucosal thickening in the maxillary antra. There is no mastoid effusion. The clivus and atlantoaxial joint appear intact. Impression: 1. Enlargement of the palatine tonsils. 2. Findings are consistent with tonsillitis. No drainable fluid collection. 3. No displacement of the parapharyngeal fat. No additional finding of significance in the pharyngeal mucosal space. 4. Superior mediastinum/lung apices are within normal limits. Dictated by Mick Fowler MD @ 03/05/2023 10:23:30 AM Please note that all CT scans at this facility use dose modulation, iterative reconstruction, and/or weight-based dosing when appropriate to reduce radiation dose to as low as reasonably achievable. Dictated by: Mick Fowler MD @ 03/05/2023 10:23:46 (Electronic Signature) Critical Care Time Critical Care Time Critical Care Time: No Discharge Plan Discharge Clinical Impression: Tonsillitis Patient Disposition: Home, Self-Care Condition: Stable Instructions: Tonsillitis (ED) Additional Instructions: Return 8 hours from the dose of antibiotics given here for 2nd dose of IV Unasyn. We will then transition you to oral Augmentin, prescription will be sent in. Tylenol and ibuprofen for pain control, follow bottle directions for dosing. Keep your ENT appointment scheduled for March [address] Carolina. If you are having worsening sore throat, difficulty swallowing or feel that the swelling is worsening, please seek re-evaluation in the interim. Activity Level: Activity as Tolerated Discharge Diet: Regular Prescriptions: No Action No Known Home Medications Follow Up/Referrals: Provider,Not a Local [Primary Care Provider] - Stand Alone Forms: [employer] Info Instructions
[2023-03-05 09:45] VITALS: O2SAT 97
[2023-03-05 10:03] LABS: Basophils Percent Auto 0.1 % (0.0-3.0); Eosinophils Percent Auto 0.1 % (0.0-7.0); Hematocrit 43.5 % (37.0-53.0); Hemoglobin* 14.1 gm/dL (13.5-17.5); Immature Granulocytes Pct Auto 0.3 %; Lymphocytes Percent Auto 7.2 % (20-44); Mean Corpuscular HGB Conc 32 gm/dL (32-36); Mean Corpuscular Hemoglobin 29 pg (26-34); Mean Corpuscular Volume 89 fL (80-100); Monocytes Percent Auto 9.2 % (0.0-11.0); Neutrophils Percent Auto 83.1 % (42.0-72.0); Platelet Count* 241 K/uL (140-440); RDW Coefficient of Variation % 12.4 % (11.5-15.5); Red Blood Count 4.88 m/uL (4.30-5.90); White Blood Count* 18.06 K/uL (4.50-11.00)
[2023-03-05 10:13] LABS: Slide Review Reflex No
[2023-03-05 10:20] LABS: Mono Screen* Negative (Negative)
[2023-03-05 10:29] LABS: Chloride* 101 mmol/L (96-114); Potassium* 3.5 mmol/L (3.6-5.1); Sodium* 138 mmol/L (135-149)
[2023-03-05 10:32] LABS: Creatinine* 0.9 mg/dL (0.5-1.5); Est. Creatinine Clearance* 142.51; Estimated Glomerular Filt Rate 125 ml/min
[2023-03-05 10:33] LABS: Blood Urea Nitrogen* 11 mg/dL (5-24); Calcium* 9.5 mg/dL (8.4-10.6); Carbon Dioxide* 24 mmol/L (20-32); Glucose* 101 mg/dL (60-115)
[2023-03-05 10:36] LABS: C Reactive Protein* 3.5 mg/dL (0.5-1.0)
[2023-03-05] MEDS: 0.9 % SODIUM CHLORIDE 1000 ml 1,000 ML IV (10:38)
[2023-03-05 10:40] LABS: Strep A DNA Probe* NOT DETECTED (Not Detectd)
[2023-03-05] MEDS: AMPICILLIN/SULBACTAM 3 GM in 0.9 % SODIUM CHLORIDE Mini-bag 100 ML IVPB (11:58)
[2023-03-05 12:46] VITALS: BP 106/63; RESP 18; O2SAT 99
--- NOTE | 2023-03-05 12:55 | ED.NURSE ---
Patient discharged with instructions to return at 8 PM for additional dose of IV antibiotics. IV covered with tegaderm and coban.
== END 2023-03-05 12:54 | disposition home or self-care (01) ==
PROVIDERS: Emergency Provider Family Medicine
DX: J03.90 Acute tonsillitis, unspecified (principal)
CPT/HCPCS: 36415; 36430; 70491; 80048; 80307; 85025; 86140; 86308; 87651; 94761; 96365; 99284; J0295; J7030; P9016; Q9967

== ENCOUNTER → 2023-03-05 20:09 | Outpatient (RCR) | payer MEDICAID, SELFPAY ==
[2023-03-05] MEDS: AMPICILLIN/SULBACTAM 3 GM in 0.9 % SODIUM CHLORIDE Mini-bag 100 ML IVPB (20:34)
[2023-03-05 20:36] VITALS: BP 114/60; PULSE 69; RESP 16; TEMP 37.2; O2SAT 99
--- NOTE | 2023-03-05 21:20 | ED.NURSE ---
IV removed tip intact, pt dc home self ambulatory.
== END | disposition home or self-care (01) ==
LOC: EDOUT 20:08
PROVIDERS: Visit Provider Family Medicine
DX: J03.90 Acute tonsillitis, unspecified (principal)
CPT/HCPCS: 36430; 80307; J0295; P9016

== ENCOUNTER 2023-03-25 10:16 | Day surgery (SDC) | payer MEDICAID, SELFPAY ==
[2023-03-25] VITALS (12 sets, daily range): BP systolic 114–133; BP diastolic 61–84; PULSE 45–68; RESP 16–20; TEMP 36.3–37; O2SAT 95–100; BMI 24.7
[2023-03-25] MEDS: LACTATED RINGERS 1000 ML 1,000 ML 100 ML IV (09:30)
[2023-03-25] MEDS: SODIUM CHLORIDE 0.9 % (FLUSH) 10 ML SYRINGE IVF (10:47)
--- NOTE | 2023-03-25 13:05 | W.ANESCHARGE ---
Anesthesia Charges Start Date/Time Anesthesia Start Date: 03/25/23 Anesthesia Start Time: 12:17 Stop Date/Time Anesthesia Stop Date: 03/25/23 Anesthesia Stop Time: 13:00
--- NOTE | 2023-03-25 13:25 | W.PM.ENTPROC ---
Procedure Note Date of procedure: 03/25/23 Procedure: Preoperative diagnosis chronic tonsillitis, tonsillar hypertrophy, upper airway obstruction, nasal obstruction , history of peritonsillar abscess x2 Postoperative diagnosis same Procedure tonsillectomy Under general endotracheal anesthesia the patient was prepped and draped in usual fashion. The McIvor mouth gag was inserted the tongue retracted forward. No submucous cleft was noted on inspection or palpation. The right and left tonsils were removed with a combination of needlepoint cautery, bipolar cautery and suction cautery. Meticulous hemostasis was achieved. The uvula was markedly elongated and the lower membranous portion was amputated to prevent swelling The patient was extubated in the operating room taken recovery in satisfactory condition. Blood loss was less than 10 mL. Surgeon: Garcia Carolina MD
--- NOTE | 2023-03-25 13:33 | W.ANESCHARGE ---
Anesthesia Charges Start Date/Time Anesthesia Start Date: 03/25/23 Anesthesia Start Time: 12:17 Stop Date/Time Anesthesia Stop Date: 03/25/23 Anesthesia Stop Time: 13:00
[2023-03-25] MEDS: ACETAMINOPHEN 160 MG/5 ML CUP 320 MG PO (13:48)
[2023-03-25] MEDS: IBUPROFEN 100 MG/5 ML SUSP 200 MG PO (13:48)
[2023-03-25] MEDS: OXYCODONE 1 MG/ML ORAL SOLN 5 MG PO (14:32)
== END 2023-03-25 14:51 | disposition home or self-care (01) ==
PROVIDERS: PCP Internal Medicine; Visit Provider Otolaryngology
PROC: (CPT 42826; principal; 2023-03-25 12:00)
DX: J35.01 Chronic tonsillitis (principal); J34.89 Other specified disorders of nose and nasal sinuses
CPT/HCPCS: 42826; 00170; 88304; A9270; J0330; J1100; J2250; J2405; J2704; J3010; J7120

== ENCOUNTER 2023-06-20 06:23 | Day surgery (SDC) | payer OTHER, MEDICAID, SELFPAY ==
[2023-06-20] VITALS (16 sets, daily range): BP systolic 112–144; BP diastolic 50–84; PULSE 40–82; RESP 14–20; TEMP 36.6–36.8; O2SAT 98–100; BMI 24.3
[2023-06-20] MEDS: LACTATED RINGERS 1000 ML 1,000 ML 100 ML IV (06:50)
[2023-06-20] MEDS: SODIUM CHLORIDE 0.9 % (FLUSH) 10 ML SYRINGE IVF (06:50)
--- NOTE | 2023-06-20 07:03 | SUR.PREOP ---
TIME?OUT:?0703 PT/RN/MDA?VERIFICATION?OF?SURGICAL?SITE,?PROCEDURE,?AND?CONSENT OBTAINED?PRIOR?TO?INVASIVE?PROCEDURE.
[2023-06-20] MEDS: MIDAZOLAM HCL 1 MG/ML inj IVP (07:10)
[2023-06-20] MEDS: fentaNYL 100 MCG/2 ML inj IVP (07:10)
--- NOTE | 2023-06-20 07:34 | W.PM.H&PU ---
History & Physical Update History & Physical Update H&P Reviewed and patient assessed: No changes noted
--- NOTE | 2023-06-20 08:00 | CRLHL7_ITS ---
For Patients: As a result of the Cures Act, medical imaging exams and procedure reports are released immediately into your electronic medical record. You may view this report before your referring provider. If you have questions, please contact your health care provider. Indication: ORIF Right Clavicle Technique: Two fluoroscopic images of the right clavicle. Fluoroscopic time 8.3 seconds. IMPRESSION: Fluoroscopic guidance for open reduction internal fixation of right clavicular fracture. Dictated by Robson Castro MD @ 06/20/2023 9:19:43 AM (Electronically Signed)
[2023-06-20] MEDS: CEFAZOLIN 2 GM in 0.9 % SODIUM CHLORIDE Mini-bag 100 ML IVPB (08:05)
--- NOTE | 2023-06-20 08:57 | W.PM.NB ---
Nerve Block Nerve Block Time Seen by Provider: 07:10 Date Seen: 06/20/23 Type of block requested by surgeon for post-operative analgesia: supraclavicular Side: right Time out performed: Yes Verification of patient name: Yes Verification of date of : Yes Site marking: site marked Name of person performing procedure: ana Continuous monitoring Was continuous monitoring of O2 sat, B/P, phototypesetting equipment monitor, recorded every 15 minutes?: Yes Procedure Checklist: sterile prep, needles and gloves Ultrasound guided. Images saved: Yes Medications given in 5ml increments after negative aspiration: Ropivicaine %: 0.5 mL: 20 Needle gauge: 20 Decadron (mg): 10 Precedex (mcg): 25 Patient tolerated procedure well: Yes Block Charges Block Charge (with Pro Fee): Brachial Plexus Use of Ultrasound Machine for Block: Yes- US Guidance/pain block
--- NOTE | 2023-06-20 09:02 | PM.ORPRC ---
Procedure Note Date of procedure: 06/20/23 Procedure: PREOPERATIVE DIAGNOSES: 1. Right distal 1/3 clavicle diaphyseal fracture with 120+% displacement. (Status post right mL ligament reconstruction with dog bone and allograft.) POSTOPERATIVE DIAGNOSES: 1. Right distal 1/3 clavicle diaphyseal fracture with 120+% displacement. (Status post right mL ligament reconstruction with dog bone and allograft.) NAME OF OPERATION: 1. Right distal 1/3 clavicle open reduction and internal fixation 2. 55362 - intraoperative fluoroscopy up to 1 hour. SURGEON: Jacques Jorgensen MD MANAGER PRINTING: Dann BHATT - Of note, an assistant food service director was critical for this case to aide in patient positioning, limb manipulation, tissue retraction, awareness of and protection of critical structures, closure, and immobilization application. EBL: 25 mL ANESTHESIA: General IMPLANTS: Arthrex clavicle plate with 3.5 mm nonlocking and locking screws. TOURNIQUET: None. 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 1 week ago during a game he was making a tackle and unfortunately had 2 other large bodies fall on top of them while his right shoulder drove into the ground. This caused significant pain, a pop, and difficulty with use. X-rays were obtained revealed a right distal 1/3 clavicle fracture adjacent to previous mL ligament reconstruction seen by the dog bone implant. Given the significant displacement and the sternocleidomastoid perpetual pull on the more proximal fragment, surgery was indicated to realign the fracture, improved compression, and stabilize the fracture. FINDINGS: Closed, primarily transverse distal 1/3 clavicle diaphyseal fracture adjacent to the previous mL ligament reconstruction. The dog bone device remain intact until drilling in 20 this suture. This allowed the device to be removed. The allograft remained in place and was appropriately positioned and situated. The fracture was reducible after excising some callus with good compression through the compression holes on the plate. PROCEDURE: Following a thorough discussion of risks, benefits, and alternatives, consent was obtained and the operative extremity was marked. The patient was brought to the operating room and placed supine on the operating table. Induction of anesthesia was achieved. Appropriate time out was performed identifying proper patient, site and procedure. 2 g IV Ancef was administered within 1 hour of incision preoperatively. The right upper extremity was prepped and draped in the appropriate sterile fashion using ChloraPrep. The skin was anesthetized with 0.5% Marcaine with epinephrine for both local anesthesia and hemostasis. Following this, sharp dissection through skin allowed evaluation of crossing neurologic structures. The periosteum was released, and subperiosteal elevation performed. The fracture ends were cleared of interposed muscle and fracture hematoma. A 7 hole plate was selected. It was contoured according to the bone shape. Cortical nonlocking compression screws were placed on either side of the fracture initially. After confirming proper reduction on C-arm fluoroscopic imaging, a 2nd and 3rd screw was placed on either side of the fracture. Again C-arm was utilized to confirm proper screw length, fracture reduction, and plate apposition. During drilling of 1 of the screws, the previous suture from the dog bone device was in 20 and. This was removed, the dog bone button on the cephalad side was visualized, and removed. It was felt that dog bone button on the undersurface of the coracoid would remain stable as the allograft was wrapped around that device. At this stage, the wound was thoroughly irrigated with normal saline. Closure performed with 0 stratafix for the periosteum/platysma. Closure was then completed with 2-0 Vicryl for the subcutaneous, and 4-0 Monocryl for subcuticular closure. Dressings were applied along with a sling. The patient was awoken from anesthesia and transferred to PACU in stable condition. PLAN: 1. Nonweightbearing operative extremity. 2. Ice, acetominphen or ibuprofen PRN. 3. Oxycodone for pain as needed. 4. Follow up with PA visit in 10-16 days for wound check and with me at approximately the 6 week josé with 2 view xrays right clavicle. He may discontinue use of the sling an approximate 3-4 weeks for desk height work, and may begin some overhead use after approximately 6 weeks.
--- NOTE | 2023-06-20 10:05 | W.ANESCHARGE ---
Anesthesia Charges Start Date/Time Anesthesia Start Date: 06/20/23 Anesthesia Start Time: 07:37 Stop Date/Time Anesthesia Stop Date: 06/20/23 Anesthesia Stop Time: 09:25
--- NOTE | 2023-06-21 07:26 | W.PM.NB ---
Nerve Block Nerve Block Time Seen by Provider: 07:15 Date Seen: 06/20/23 Type of block requested by surgeon for post-operative analgesia: supraclavicular Side: right Time out performed: Yes Verification of patient name: Yes Verification of date of : Yes Site marking: site marked Name of person performing procedure: ana Continuous monitoring Was continuous monitoring of O2 sat, B/P, lunchroom monitor, recorded every 15 minutes?: Yes Procedure Checklist: sterile prep, needles and gloves Ultrasound guided. Images saved: Yes Medications given in 5ml increments after negative aspiration: Ropivicaine %: 0.5 mL: 20 Needle gauge: 20 Decadron (mg): 10 Precedex (mcg): 25 Patient tolerated procedure well: Yes Block Charges Block Charge (with Pro Fee): Brachial Plexus Use of Ultrasound Machine for Block: Yes- US Guidance/pain block
== END 2023-06-20 11:00 | disposition home or self-care (01) ==
PROVIDERS: PCP Internal Medicine; Visit Provider Orthopaedic Surgery Sports Medicine
PROC: (CPT 23515; principal; 2023-06-20 08:00)
DX: S42.031A Displaced fracture of lateral end of right clavicle, initial encounter for closed fracture (principal); G89.18 Other acute postprocedural pain
CPT/HCPCS: 23515; 01630; 64415; 73000; 76000; 76942; C1713; J0330; J0690; J1100; J2250; J2405; J2704; J2795; J3010; J7120

== ENCOUNTER 2024-06-17 08:58 | Inpatient (IN) | payer MEDICAID, OTHER, SELFPAY ==
[2024-06-17] VITALS (20 sets, daily range): BP systolic 114–139; BP diastolic 60–83; PULSE 44–85; RESP 12–20; TEMP 36.6–37.2; O2SAT 91–100; BMI 25.5
--- NOTE | 2024-06-17 09:26 | CRLHL7_ITS ---
For Patients: As a result of the Century Cures Act, medical imaging exams and procedure reports are released immediately into your electronic medical record. You may view this report before your referring provider. If you have questions, please contact your health care provider. Indication: Pain of left lower extremity. Technique: Left tibia and fibula 2 views. Comparison: None. Findings: Bones: Alignment is normal. No fractures or bone lesions. Well corticated ossicle at the medial malleolus likely represents accessory ossicle or is related to prior trauma. Joint spaces: Unremarkable. Soft tissues: Unremarkable. Impression: Unremarkable left tibia and fibula. No findings to explain pain. Dictated by Chana Francis MD @ 06/17/2024 10:08:09 AM (Electronically Signed)
--- NOTE | 2024-06-17 09:33 | ED_ITS ---
HPI - General Adult General Chief complaint: Extremity Pain/Injury, Lower Stated complaint: left leg injury Time Seen by Provider: 06/17/24 09:23 Source: patient Mode of arrival: ambulatory Limitations: no limitations History of Present Illness HPI narrative: 23-year-old male presenting today with left lower extremity pain. Patient states he was playing a football game yesterday when he planted his foot as he tried to throw another player off of him. There was no direct trauma to the leg. He felt immediate pain however was able to play the rest of the game. He then woke up this morning with increased pain to the point where he could not even walk. He denies any other injury. Pain is located from the knee all the way down to the ankle mostly on the lateral lower extremity. He states that when he tries to walk it feels like his foot is on fire. He denies changes in his skin color or temperature of the extremity. He did not hit his head or lose consciousness. Related Data Home Medications ?Medication ?Instructions ?Recorded ?Confirmed No Known Home Medications 08/05/23 08/05/23 Allergies Allergy/AdvReac Type Severity Reaction Status Date / Time No Known Drug Allergies Allergy Verified 08/05/23 11:00 Review of Systems Status of ROS: Reports: 6 or more systems reviewed and unremarkable except as noted in History and below [facility] Medical History Tonsil, abscess ?J36 - Peritonsillar abscess (ICD-10) Surgical History S/P ORIF (open reduction internal fixation) fracture (06/20/23) ?Z98.890 - Other specified postprocedural states (ICD-10) ?Z87.81 - Personal history of (healed) traumatic fracture (ICD-10) S/P arthroscopy of right shoulder (09/06/22) ?Z98.890 - Other specified postprocedural states (ICD-10) Family History Father Diabetes Social History Smoking Status: Never smoker Do you use any of these nicotine containing products: None How often do you have a drink containing alcohol: never How often do you have six or more drinks on one occasion: Never AUDIT-C Alcohol total score: 0 Non-prescribed substance use: denies use Caffeine: No service: No Exam Narrative: Exam Narrative: Well-nourished well-developed patient, uncomfortable. Alert and oriented. Answers questions appropriately. Mood and affect are appropriate. Thoughts are goal oriented and rational. No tangential or magical thinking noted. Patient speaks in full sentences without needing to catch his breath. HEENT: Normocephalic atraumatic. Pupils are equally round reactive to light. Extraocular muscles are intact. Conjunctivae are moist without any icterus noted. Moist mucous membranes. Extremities: Patient has swelling, tenderness and firmness down the lateral lower extremity on the left from the knee all the way down to the ankle. He has no pain at the knee. He does have a superficial abrasion that is not fresh of the knee. He has good DP and PT pulses there is no pallor of the skin. The skin is not hot to touch or cold to touch. He has tenderness palpation over the calf. He has good range of motion at the ankle which causes discomfort of the leg but no pain at the ankle itself. The patient appears quite uncomfortable. He does have pain with passive motion. Const: Vital Signs, click to edit/add: Vital Signs - 24 hr 06/17/24 09:02 Temperature 98 F Pulse Rate [Right Pulse Oximeter] 58 L Respiratory Rate 16 Blood Pressure [Ri ght Upper Arm] 139/83 Pulse Oximetry 100 Oxygen Delivery Me thod Room Air Course Course ED Course: Tib-fib x-rays were obtained: These were unremarkable. There is certainly a concern about an evolving hematoma and compartment syndrome given the amount of swelling and pain he is having. Therefore we proceeded with a CT scan of the lower extremity. When I went to re-evaluate the patient discussed his CT scan results patient was lying in bed with sheet over his head. He appeared visibly uncomfortable, more so than he did before. He requested pain medication. This was quite concerning therefore I did consult with Orthopedics and requested an examination of the patient to rule out compartment syndrome. Dr. Evans and evaluated the patient and felt that this was indeed compartment syndrome. Patient will be taken to the OR for further management. Vital Signs Vital signs: Initial Vital Signs Temperature 98 F 06/17/24 09:02 Temperature Source Temporal Artery Scan 06/17/24 09:02 Pulse Rate 58 L 06/17/24 09:02 Pulse Rhythm Regular 06/17/24 09:02 Pulse Strength 3+ Normal 06/17/24 09:02 Respiratory Rate 16 06/17/24 09:02 Blood Pressure 139/83 06/17/24 09:02 Blood Pressure Mean 101 06/17/24 09:02 Blood Pressure Position Sitting 06/17/24 09:02 Pulse Oximetry 100 06/17/24 09:02 Oxygen Delivery Method Room Air 06/17/24 09:02 Vital Signs Temperature 98 F 06/17/24 09:02 Pulse Rate 58 L 06/17/24 09:02 Respiratory Rate 16 06/17/24 09:02 Blood Pressure 139/83 06/17/24 09:02 Pulse Oximetry 100 06/17/24 09:02 Oxygen Delivery Method Room Air 06/17/24 09:02 Temperature 98 F 06/17/24 09:02 Pulse Rate 58 L 06/17/24 09:02 Respiratory Rate 16 06/17/24 09:02 Blood Pressure 139/83 06/17/24 09:02 Pulse Oximetry 100 06/17/24 09:02 Oxygen Delivery Method Room Air 06/17/24 09:02 Medications Administered Medications: Discontinued Medications Generic Name Dose Route Start Last Admin Trade Name Freq PRN Reason Stop Dose Admin Hydrocodone Bitart/Acetaminophen 1 tab 06/17/24 11:39 06/17/24 11:42 Hydrocodone-Acetamin 5-325 Mg 1 Tab PO 06/17/24 11:40 1 tab ONCE ONE Administration Ibuprofen 800 mg 06/17/24 09:50 06/17/24 10:01 Ibuprofen 400 Mg Tablet PO 06/17/24 09:51 800 mg ONCE ONE Administration Medical Decision Making MDM Narrative Medical decision making narrative: 23-year-old male compartment syndrome. Imaging Data Tib-fib x-ray: Attestation: I have reviewed the pertinent imaging results. Radiologist's impression: Left tibia and fibula 2 views. Comparison: None. Findings: Bones: Alignment is normal. No fractures or bone lesions. Well corticated ossicle at the medial malleolus likely represents accessory ossicle or is related to prior trauma. Joint spaces: Unremarkable. Soft tissues: Unremarkable. Impression: Unremarkable left tibia and fibula. No findings to explain pain. Lower extremity CT scan: Attestation: I have reviewed the pertinent imaging results. Radiologist's impression: Football injury. Pain and swelling of the lateral mid calf. Please evaluate for hematoma/muscle injury. TECHNIQUE: Noncontrast CT scan of the left calf. Findings : No evidence of acute fracture or dislocation. Subcutaneous edema and mild underlying muscular edema in the upper anterior lateral left calf. No rounded fluid collections. No other bony or soft tissue abnormalities identified. Impression : 1. No evidence of acute fracture or dislocation. 2. Subcutaneous edema and mild underlying muscular edema in the upper anterior lateral left calf due to direct trauma. Discharge Plan Discharge Prescriptions: No Action No Known Home Medications
--- OUTSIDE RECORDS SUMMARY | 2024-06-17 09:36 | XMS_ITS | Clinical Summary ---
Author Organization [facility] Address [address] [place] [id number] Phone Care Team Providers Care Marriage Performer Name Role Phone Identified, No Provider Primary Care Provider Un available Allergies No known active allergies Medications No known medications Active Problems No known active problems Family History Medical History Relation Name Comments Diabetes Father Relation Name Status Comments Brother 1 Alive Brother 2 Alive Brother 3 Alive Father Maternal Grandfather Alive Maternal Grandmother Mother Alive Paternal Grandfather Paternal Grandmother Alive Sister Alive Social History Tobacco Use Types Packs/Day Years Used Date Smoking Tobacco: Never Smokeless Tobacco: Never Alcohol Use Standard Drinks/Week Comments Yes 0 (1 standard drink = 0.6 oz pur e alcohol) 1-2 a month Interpersonal Safety Answer Date Record ed Feels unsafe at home, work, or school Not on cortez e 06/05/2023 Feels threatened by someone Not on file 03/2023 Witholding contact with othe rs or doing things outside of your home Not on file 06/05/2023 Physical Abuse Not on file 06/05/2023 Sex and Gender Information Value Date Recorded Sex Assigned at Not on file Legal Sex Male 10:09 AM DIAMOND BROKER Gender Identity Not on file Sexual Orientation Not on file Last Filed Vital Signs Vital Sign Reading Time Taken Comments Blood Pressure 129/63 09/17/2021 3:52 PM DIAMOND BROKER Pulse 70 09/17/2021 3:52 PM DIAMOND BROKER Temperature 36.7 ??C (98 ??F) 09/17/2021 3:52 PM DIAMOND BROKER Respiratory Rate - - Oxygen Saturation - - Inhaled Oxygen Concentration - - Weight 79.4 kg (175 lb) 09/17/2021 3:52 PM DIAMOND BROKER Height 182.9 cm (6') 09/17/2021 3:52 PM DIAMOND BROKER Body Mass Index 23.73 09/17/2021 3:52 PM DIAMOND BROKER Plan of Treatment Health Maintenance Due Date Last Done Comments MMR Vaccines (1 of 1 - Stand valerie series) 2002 Depression Screening 2013 Varicella Vaccines (1 of 2 - 13+ 2-dose series) 2014 HPV Vaccines (1 - Male 3-dos e series) 2016 DTaP/Tdap/Td Vaccines (1 - Tdap) 2020 Hepatitis B Vaccines (1 of 3 - 19+ 3-dose series) 2020 COVID-19 Vaccine (1 - 2022-2 4 season) 2024 Influenza Vaccine (#1) 2024 HIB Vaccines Aged Out No longer eligi ble based on patient's age to complete this topic Hepatitis A Vaccines Aged Out No long er eligible based on patient's age to complete this topic IPV Vaccines Aged Out No longer eligi ble based on patient's age to complete this topic Meningococcal Vaccine (ACWY) Aged Out No longer eligible based on patient's age to complete this topic Pneumococcal Vaccines (0-64 Years) Aged Out No longer eligible based on patient's age to complete this topic Rotavirus Vaccines Aged Out No longer eligible based on patient's age to complete this topic Insurance [employer] (POS, PPO, etc) Address: [facility] [address] [place] [phone] [employer] Commercial (POS, PPO, etc) Address: [address] [place] [phone] Care Teams Marriage Performer Relationship Specialty Start Date End Date Identified, No Provider PCP - General 09/15/21
--- OUTSIDE RECORDS SUMMARY | 2024-06-17 09:36 | XMS_ITS | Clinical Summary ---
Author Organization [employer] [facility] Address [place], [place] [address] Care Team Providers Care Parts Processor Name Role Phone Provider, Non-[facility] Primary Care Provider Un available Allergies No known active allergies Medications No known medications Family History Medical History Relation Name Comments Diabetes Father Good Health Mother Relation Name Status Comments Brother 1 Alive Brother 2 Alive Brother 3 Alive Father Mother Alive Sister Alive Social History Tobacco Use Types Packs/Day Years Used Date Smoking Tobacco: Never Smokeless Tobacco: Never Tobacco Cessation:Counseling Given: Yes Alcohol Use Standard Drinks/Week Comments Never 0 (1 standard drink = 0.6 oz pur e alcohol) PHQ-2 Answer Date Recorded PHQ-2 TOTAL SCORE 0 05/01/2020 Social Connections Answer Date Recorded Frequency of Communication with Friends and Fami ly Not on file 08/29/2021 Financial Resource Strain Answer Date R ecorded Difficulty of Paying Living Expenses Not on file 08/29/2021 Difficulty of Paying Living Expenses Not on file 08/29/2021 Sex and Gender Information Value Date Recorded Sex Assigned at Not on file Gender Identity Not on file Sexual Orientation Not on file Obstetrics History Last Filed Vital Signs Vital Sign Reading Time Taken Comments Blood Pressure 120/77 05/01/2020 4:19 PM CDT Pulse 79 05/01/2020 4:19 PM CDT Temperature 36.4 ??C (97.6 ??F) 05/01/2020 4:19 PM CD T Respiratory Rate - - Oxygen Saturation 98% 05/01/2020 4:19 PM CDT Inhaled Oxygen Concentration - - Weight 77.5 kg (170 lb 12.8 oz) 05/01/2020 4:19 PM CDT Height 179.5 cm (5' 10.67) 05/01/2020 4:19 PM C DT Body Mass Index 24.05 05/01/2020 4:19 PM CDT Plan of Treatment Health Maintenance Due Date Last Done Comments Tdap 2012 HIV for age 15-65 2016 HPV series for age 9-26 (1 - Male 3-dose series) 2016 Hepatitis C screening for ag e 18-79 2019 BMI (ht and wt on same day) for age 18+ 05/01/2021 05/01/2020 Depression screening for age 12+ 05/01/2021 05/01/20 20 Tetanus booster 2021 COVID-19 vaccine series (2023- season) 2024 Influenza for age 9-49 04/29/2024 Pneumococcal series for age 6-64 Aged Out No longer eligible based on patient's age to complete this topic Care Teams Parts Processor Relationship Specialty Start Date End Date Provider, Non-[facility] . PCP - General 05/01/20
--- OUTSIDE RECORDS SUMMARY | 2024-06-17 09:36 | XMS_ITS | Clinical Summary ---
Author Organization [facility] Address [address] [address] Phone Care Team Providers Care Strand And Binder Controller Name Role Phone Unavailable Primary Care Provider Unavailabl e Allergies No known active allergies Medications oxyCODONE (Roxicodone) 5 MG immediate release tablet Take 1 Tablet by mouth every six hours as needed for Pain. 10 Tablet 06/11/2023 Active ondansetron (Zofran) 4 MG tablet Take 1 Tablet by mouth every eight hours as needed for Nausea or Vomiting. 10 Tablet 06/11/2023 Active Active Problems Problem Noted Date Diagnosed Date Cellulitis of parapharyngeal space 06/11/2023 06/11/2023 Sprain of right acromioclavicular joint 06/11/2006/11/2023 Superior labrum anterior-to- posterior (SLAP) tear of right shoulder 06/11/2023 06/11/2023 Tonsillitis 06/11/2023 06/11/2023 Recurrent peritonsillar abscess 04/20/2022 06/11/2023 Social History Tobacco Use Types Packs/Day Years Used Date Smoking Tobacco: Never Assessed Sex and Gender Information Value Date Recorded Sex Assigned at Not on file Legal Sex Male 2:46 PM CDT Gender Identity Not on file Sexual Orientation Not on file Last Filed Vital Signs Vital Sign Reading Time Taken Comments Blood Pressure - - Pulse - - Temperature - - Respiratory Rate - - Oxygen Saturation - - Inhaled Oxygen Concentration - - Weight 81.6 kg (180 lb) 06/11/2023 3:07 PM CDT Height 182.9 cm (6') 06/11/2023 3:07 PM CDT Body Mass Index 24.41 06/11/2023 3:07 PM CDT Plan of Treatment Health Maintenance Due Date Last Done Comments HPV Vaccine (Standing Order) (1 - Male 3-dose series) 2016 Hepatitis B Vaccine (Standin g Order) (1 of 3 - 19+ 3-dose series) 2020 PERTUSSIS (Standing Order) 2020 TETANUS (Standing Order) 2020 COVID-19 Vaccine (1 - 2023-2 5 season) 2024 Influenza Vaccine Seasonal (Standing Order) (#1) 2024 RSV Vaccination (60+ yrs) (Abrysvo/Arexvy) (1 - 1-dose 75+ series) 2076 Pneumococcal/PCV20 Vaccine: Pediatrics (2-5 yrs) and At-Risk Patients (6-64 yrs) (Standing Order) Aged Out No longer eligible b ased on patient's age to complete this topic Insurance [employer] [place] [address] [place] [address]
--- NOTE | 2024-06-17 09:50 | CRLHL7_ITS ---
For Patients: As a result of the Cures Act, medical imaging exams and procedure reports are released immediately into your electronic medical record. You may view this report before your referring provider. If you have questions, please contact your health care provider. INDICATION: Football injury. Pain and swelling of the lateral mid calf. Please evaluate for hematoma/muscle injury. TECHNIQUE: Noncontrast CT scan of the left calf. Findings : No evidence of acute fracture or dislocation. Subcutaneous edema and mild underlying muscular edema in the upper anterior lateral left calf. No rounded fluid collections. No other bony or soft tissue abnormalities identified. Impression : 1. No evidence of acute fracture or dislocation. 2. Subcutaneous edema and mild underlying muscular edema in the upper anterior lateral left calf due to direct trauma. Dictated by John Wilson MD @ 06/17/2024 10:32:51 AM Please note that all CT scans at this facility use dose modulation, iterative reconstruction, and/or weight-based dosing when appropriate to reduce radiation dose to as low as reasonably achievable. Dictated by: John Wilson MD @ 06/17/2024 10:32:56 (Electronically Signed)
[2024-06-17] MEDS: IBUPROFEN 400 MG TABLET 800 MG PO (10:01)
[2024-06-17] MEDS: HYDROCODONE-ACETAMIN 5-325 MG 1 TAB PO (11:42)
--- NOTE | 2024-06-17 12:37 | PM.ORCN ---
History of Present Illness HPI Date Seen: 06/17/24 Chief complaint: left leg injury Narrative: José is a pleasant 23-year-old male known to my clinic having undergone previous orthopedic surgeries in the past. He presents today with the new complaint of left lateral leg pain and paresthesias involving his lateral leg and anterior ankle/dorsum foot. 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 He was in the end zone defending a player on a run play. He was not involved and tackle. 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 It certainly appeared that he may have fractured his tibia and fibula. He was able to continue playing the rest of the game. He noted it was sore. He tried to ?roll it out in between series? and noted if he was simply standing it was not too bad. If he would try to planned off that left leg it was difficult. He iced after the game. Went to the volleyball game later that evening. 6:00 p.m.. Noted there was more pain and paresthesias at that time. Things continued to progress through the evening and night. In fact, he reports essentially no sleep all night. Now, his pain persisted. Pain is located from the knee all the way down to the ankle mostly on the lateral lower extremity. He states that when he tries to walk it feels like his foot is on fire. He denies changes in his skin color or temperature of the extremity. 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 Here, x-rays revealed no acute fractures. A CT scan was also done of his left leg which did not show any diagnostic findings other than general swelling of the anterior and lateral compartments. Consistent with the physical exam. As was concern for compartment syndrome in this left leg, orthopedics was consulted. As soon as I learned of this, I came in immediately. Upon my evaluation the patient, I learned that indeed he has pain with passive stretch of his toes or ankle, he has significant paresthesias in the peroneal nerve distribution, and significant pressurization/tensed anterior and lateral left leg compartments. His 1st narcotic tablet was administered at approximately 11:30 a.m. today. [facility] Medical History Tonsil, abscess ?J36 - Peritonsillar abscess (ICD-10) Surgical History S/P ORIF (open reduction internal fixation) fracture (06/20/23) ?Z98.890 - Other specified postprocedural states (ICD-10) ?Z87.81 - Personal history of (healed) traumatic fracture (ICD-10) S/P arthroscopy of right shoulder (09/06/22) ?Z98.890 - Other specified postprocedural states (ICD-10) Family History Father Diabetes Social History Smoking Status: Never smoker Do you use any of these nicotine containing products: None How often do you have a drink containing alcohol: never How often do you have six or more drinks on one occasion: Never AUDIT-C Alcohol total score: 0 Non-prescribed substance use: denies use Caffeine: No service: No Meds Home Medications and Allergies Home Medications ?Medication ?Instructions ?Recorded ?Confirmed ?Type No Known Home Medications 08/05/23 08/05/23 History Allergies Allergy/AdvReac Type Severity Reaction Status Date / Time No Known Drug Allergies Allergy Verified 08/05/23 11:00 Ortho Exam Narrative Exam Narrative: He is alert and oriented x3. He is in the room by himself. He was sitting on the edge of the bed. He notes that he cannot rest his leg against a surface such as a bed or this hospital ED bed. That light pressure causes severe pain about his lateral/anterolateral leg. He is clearly in pain. He is writhing to some degree. Upon various palpations of the anterior and lateral compartments the leg he has tremendous pain. There is pain with passive stretch of his toes and his ankle especially with plantar flexion. Plantar flexion of his lesser toes produces a profound paresthesia over the dorsum of his foot and anterior ankle. There is no pallor and his pulses including both DP and PT pulses are palpable. The anterior and lateral compartments of his leg feel very pressurized and tense. Notably different than the posterior compartments of his same left leg or the anterolateral compartments of the contralateral right leg. He is able to actively dorsiflex his ankle and extend his toes, but minimal arc of motion and minimal strength due to the profound pain in the anterolateral leg region. Const Vital Signs, click to edit/add: Vital Signs - 24 hr 06/17/24 09:02 Temperature 98 F Pulse Rate [Right Pulse Oximeter] 58 L Respiratory Rate 16 Blood Pressure [Right Upper Arm] 139/83 Pulse Oximetry 100 Oxygen Delivery Method Room Air Results Diagnostic results Additional Comments: Two view left tib-fib radiographs from [facility] dated 06/17/2024 was ordered by a different provider and reviewed by me. This shows no acute fractures, avulsions, or intraosseous pathology. Difficulty even appreciate the soft tissue swelling. CT scan of the left leg from [facility] dated 06/17/2024 was also ordered by a different provider and reviewed by me and corroborated with the radiology report. This shows no evidence of acute fractures or dislocations. There is subcutaneous edema and muscle edema and the left anterior and lateral calf. In fact, the subcutaneous fat layer appears quite thin overlying the pressurized compartments as compared to the remaining subcutaneous fat layer in the medial and posterior medial leg. Assessment and Plan Assessment and plan (1) Compartment syndrome: Status: Acute Plan I had a thorough discussion with José today. I communicated my suspicion of an acute compartment syndrome in this left leg. While his onset seems to have been somewhat delayed, this may have been related to the type of trauma. It was not a direct blow to the leg, but rather what looked like a muscle strain from his foot slipping onto her during his football game yesterday afternoon. He was able to continue playing the rest of the game. Then, later that evening things worsen. Throughout the night he essentially got no sleep. He now notices significant paresthesias, pain with passive stretch, and significant tension and pressurization in this left anterolateral leg compartment. I think the reason he does not have pallor is because his pulses are still strong which makes sense since the medial/posterior medial portion/compartments are currently unaffected. I communicated with him that compartment syndrome is an orthopedic emergency. I would strongly recommend surgery at this time for open fasciotomy of this left leg anterior and lateral compartments. We discussed the risks, benefits, and alternatives in good detail. Specifically, I discussed the risk for infection and nerve injury and muscle . Also the fact that he may likely benefit from a stay in the hospital and/or wound negative pressure dressing placement if the skins pressure is too great to close-something that I do anticipate given the pressure I see clinically. I was able to coordinate care with the emergency room physician as well as the hospitalist. Again, I do anticipate the patient will benefit from an overnight stay. At least 1 night, possibly multiple nights depending on his clinical recovery. I also communicated to josé that this would likely be a multi month recovery. This means is football season will be done. Understandably, he was saddened by this news. He has a remarkable young man. Respectful. Kind.
[2024-06-17] MEDS: LACTATED RINGERS 1000 ML 1,000 ML 100 ML IV (13:14)
--- OUTSIDE RECORDS SUMMARY | 2024-06-17 13:14 | XMS_ITS | Clinical Summary ---
Author Organization [facility] Address [address] [address] Phone Care Team Providers Care Sammying Machine Operator Name Role Phone Unavailable Primary Care Provider [...] complete this topic Insurance [employer] [place] [address] [address]
--- OUTSIDE RECORDS SUMMARY | 2024-06-17 13:14 | XMS_ITS | Clinical Summary ---
Author Organization [employer] [facility] Address [place], [place] [address] Care Team Providers Care Regional Engineer Name Role Phone Provider, Non-[facility] Primary Care [...] age to complete this topic Care Teams Regional Engineer Relationship Specialty Start Date End Date Provider, Non-[facility] . PCP - General 05/01/20
--- OUTSIDE RECORDS SUMMARY | 2024-06-17 13:14 | XMS_ITS | Clinical Summary ---
Author Organization [facility] Address [address] [place] [id number] Phone Care Team Providers Care Raw Shellfish Preparer Name Role Phone Identified, No Provider Primary [...] on file Legal Sex Male 10:09 AM [facility] Gender Identity Not on file Sexual Orientation Not on file Last Filed Vital Signs Vital Sign Reading Time Taken Comments Blood Pressure 129/63 09/17/2021 3:52 PM [facility] Pulse 70 09/17/2021 3:52 PM [facility] Temperature 36.7 ??C (98 ??F) 09/17/2021 3:52 PM [facility] Respiratory Rate - - Oxygen Saturation - - Inhaled Oxygen Concentration - - Weight 79.4 kg (175 lb) 09/17/2021 3:52 PM [facility] Height 182.9 cm (6') 09/17/2021 3:52 PM [facility] Body Mass Index 23.73 09/17/2021 3:52 PM [facility] Plan of Treatment Health Maintenance Due Date [...] patient's age to complete this topic Insurance [employer] Commercial (POS, PPO, etc) Address: [facility] [address] [place] [id number] [employer] Commercial (POS, PPO, etc) Address: [address] [place] [id number] Care Teams Raw Shellfish Preparer Relationship Specialty Start Date End Date Identified, No Provider PCP - General 09/15/21
[2024-06-17] MEDS: CEFAZOLIN 2 GM in 0.9 % SODIUM CHLORIDE Mini-bag 100 ML IVPB ×2 (13:20→20:44)
--- NOTE | 2024-06-17 13:44 | SUR.OPER ---
PATIENT TO OPERATING ROOM WITH ABRASIONS ON LEFT ARM-OPEN BLEEDING AREAS, OPEN BLEEDING AREA LEFT KNEE, LEFT LEG SWOLLEN
--- NOTE | 2024-06-17 14:08 | W.ANESCHARGE ---
Anesthesia Charges Start Date/Time Anesthesia Start Date: 06/17/24 Anesthesia Start Time: 13:14 Stop Date/Time Anesthesia Stop Date: 06/17/24 Anesthesia Stop Time: 14:10 Summary Emergency: DEVELOPMENTAL SPECIALIST
--- NOTE | 2024-06-17 14:09 | PM.ORPRC ---
Procedure Note Date of procedure: 06/17/24 Procedure: PREOPERATIVE DIAGNOSIS: 1. Left leg acute compartment syndrome (lateral compartment and suspect anterior compartment) POSTOPERATIVE DIAGNOSIS: 1. Left leg acute compartment syndrome (lateral compartment and suspect anterior compartment) PROCEDURE: 1. Left leg open fasciotomy of anterior and lateral compartments 2. Application of negative pressure wound dressing (16cm x 5cm = 80cm2) SURGEON: Jacques Jorgensen M.D. CLARIFIER OPERATOR HELPER: Viola Gurrola PA-C. Of note, an faculty research assistant was critical for this case to aid in patient positioning, knee manipulation, instrument exchange, and closure. 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 Non contact injury. Foot was planted in the turf, it slipped, he felt a pain over the lateral and anterior part of his left mid leg. Thought was a muscle strain. Continue to play the rest of the game. After icing and resting following the game, noted increasing pain in the evening. He then developed severe pain into the night along with paresthesias over the left dorsal foot as well as anterior ankle and lateral leg. Pressurized/tense lateral portion to his leg. Presented [facility] ED on 06/17/2024. X-rays showed no acute fractures of the tib-fib region. CT scan of the entire left leg showed no clear osseous pathology but did show increased swelling/volume of the lateral and anterior compartments the left leg. Orthopedics was consulted. Upon my evaluation, there is high suspicion for compartment syndrome in this left leg. I recommended taking him to the operating room for emergent fasciotomy of the lateral and anterior compartments of the left leg. FINDINGS: Anterior compartment showed some pressurization but healthy muscle. When releasing the lateral compartment, it also showed significant pressurized compartment with a muscle expanding out from the fasciotomy. However, there was also significant hematoma and a slight dusky or color to this lateral compartment muscle. Still had some beefy red color, but not as vibrant as the anterior compartment muscle. DESCRIPTION OF PROCEDURE: After a thorough discussion of risks, benefits, and alternatives, the patient was brought to the operating room and placed upon the operating table. Induction of anesthesia was undertaken as previously noted. [2g iv Ancef] was administered within 1 hr of incision preoperatively. Appropriate time-out was performed identifying proper patient, site, and procedure. The left lower extremity was prepped and draped in the appropriate sterile fashion using ChloraPrep. The left leg underwent a longitudinal incision. We began approximately 3 fingerbreadths below the fibular head and extending this distally to approximately 3 fingerbreadths from the lateral malleolus tip staying 1 fingerbreadth anterior to the anterior fibular border the full length (~ 16 cm). Sharp incision through skin and blunt dissection to subcutaneous tissue allowed us to identify the muscular fascia. Indeed we identified the intermuscular septum very clearly. We made a transverse incision through the fascia so as to access both the anterior and posterior portions from the intermuscular septum engaging both anterior and lateral compartments. Metzenbaum scissors was utilized with a curved pointed away from the intermuscular septum and extended both proximally and distally through the anterior compartment fascia and likewise to the lateral compartment fascia. Again when entering the anterior compartment fascia, the muscle was beefy red and vibrant in color. No significant hematoma encountered, but there was relief of the pressure. When entering the lateral compartment the tissue showed a lot of hemorrhage/hematoma as well as a slightly duskier color to the muscle itself. While there was a beefy red appearance, it was not as vibrant as anterior compartment muscle. Given the significant pressure and soft tissue tension, decision was made to apply a negative pressure wound dressing. The surgical wound that was created measured 16 cm in length, 5 cm in width, and 0.5 cm in depth. The sponge was applied, sealed, and the suction applied and confirmed to have excellent seal. The patient was woken from anesthesia and transferred to the recovery room in stable condition. PLAN: 1. Weightbear as tolerated operative extremity. Crutch ambulation assistance PRN. Straight leg raise to be initiated starting tomorrow by the patient. 2. Ice, acetaminophen and/or oxycodone for pain as needed. 3. Knee and ankle range of motion and quad sets/straight leg raise regularly 4. Admit to the hospital. Possibly for 3 nights and the need for revisit in the operating room for possible skin closure versus need for skin grafting.
[2024-06-17] MEDS: 0.9 % SODIUM CHLORIDE 1000 ml 1,000 ML 100 ML IV (14:53)
--- NOTE | 2024-06-17 16:41 | P.IMCN_ITS ---
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 Patient is athletic. He presents to Ortho Clinic today with the new complaint of left lateral leg pain and paresthesias involving his lateral leg and anterior ankle/dorsum foot. 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 He was able to continue playing the rest of the game. He noted it was sore. Things continued to progress through the evening and night. In fact, he reports essentially no sleep all night. A CT scan was also done of his left leg which did not show any diagnostic findings other than general swelling of the anterior and lateral compartments. There was a concern for compartment syndrome in this left leg, orthopedics was consulted whose exam showed pt has significant paresthesia in the peroneal nerve distribution, and significant pressurization/tensed anterior and lateral left leg compartments. The patient was admitted with a diagnosis of compartment syndrome for open fasciotomy surgery of his left leg anterior and lateral compartments. Review of Systems Status of ROS: Reports: 6 or more systems reviewed and unremarkable except as noted in History and below [facility] Medical History Tonsil, abscess ?J36 - Peritonsillar abscess (ICD-10) Surgical History S/P ORIF (open reduction internal fixation) fracture (06/20/23) ?Z98.890 - Other specified postprocedural states (ICD-10) ?Z87.81 - Personal history of (healed) traumatic fracture (ICD-10) S/P arthroscopy of right shoulder (09/06/22) ?Z98.890 - Other specified postprocedural states (ICD-10) Family History Father Diabetes Social History Smoking Status: Never smoker Do you use any of these nicotine containing products: None How often do you have a drink containing alcohol: never How often do you have six or more drinks on one occasion: Never AUDIT-C Alcohol total score: 0 Non-prescribed substance use: denies use Caffeine: No service: No Meds Home Medications and Allergies Home Medications ?Medication ?Instructions ?Recorded ?Confirmed ?Type No Known Home Medications 08/05/23 08/05/23 History Allergies Allergy/AdvReac Type Severity Reaction Status Date / Time No Known Drug Allergies Allergy Verified 08/05/23 11:00 Exam Narrative: Exam Narrative: Physical exam GENERAL: Comfortable, no acute distress. HEAD AND NECK: Atraumatic, normocephalic CARDIOVASCULAR: Bradycardic. Normal S1, S2. No murmurs. RESPIRATORY: Clear to auscultation B/L. Good air entry B/L. No wheezes or rhonchi. GASTROINTESTINAL: Not distended, not tender to palpation. NEUROLOGY: Alert, awake, oriented X 3. Normal speech. PSYCH: Normal mood, normal affect. Const: Vital Signs, click to edit/add: Vital Signs - 24 hr 06/17/24 09:02 06/17/24 14:05 06/17/24 14:10 Temperature 98 F 98.3 F Pulse Rate 60 56 L Pulse Rate [Right Pulse Oximeter] 58 L Respiratory Rate 16 12 12 Blood Pressure 119/60 137/73 Blood Pressure [Ri ght Upper Arm] 139/83 Pulse Oximetry 100 91 93 Oxygen Delivery Me thod Room Air Nasal Cannula Nasal Cannula Oxygen Flow Rate 6 6 06/17/24 14:15 06/17/24 14:20 06/17/24 14:25 Temperature 98.1 F Pulse Rate 59 L 56 L 59 L Pulse Rate [Right Pulse Oximeter] Respiratory Rate 12 14 14 Blood Pressure 130/70 132/72 134/77 Blood Pressure [Ri ght Upper Arm] Pulse Oximetry 99 100 96 Oxygen Delivery Me thod Nasal Cannula Nasal Cannula Nasal Cannula Oxygen Flow Rate 6 2 2 06/17/24 14:30 06/17/24 14:35 Temperature 98.5 F Pulse Rate 54 L 48 L Pulse Rate [Right Pulse Oximeter] Respiratory Rate 14 16 Blood Pressure 132/78 134/73 Blood Pressure [Ri ght Upper Arm] Pulse Oximetry 96 94 Oxygen Delivery Me thod Room Air Room Air Oxygen Flow Rate ECG Attestation: I personally reviewed and interpreted this ECG as follows: Interpretation: EKG shows sinus bradycardia with moderate criteria for LVH Imaging CT- Other: Radiologist's impression: TECHNIQUE: Noncontrast CT scan of the left calf. Findings : No evidence of acute fracture or dislocation. Subcutaneous edema and mild underlying muscular edema in the upper anterior lateral left calf. No rounded fluid collections. No other bony or soft tissue abnormalities identified. Impression : 1. No evidence of acute fracture or dislocation. 2. Subcutaneous edema and mild underlying muscular edema in the upper anterior lateral left calf due to direct trauma. Dictated by John Wilson MD @ 06/17/2024 10:32:51 AM Please note that all CT scans at this facility use dose modulation, iterative reconstruction, and/or weight-based dosing when appropriate to reduce radiation dose to as low as reasonably achievable. Dictated by: John Wilson MD @ 06/17/2024 10:32:56 Assessment and Plan Assessment and plan (1) Compartment syndrome: Problem comment: -Left leg open fasciotomy of anterior and lateral compartments -Application of negative pressure wound dressing (16cm x 5cm = 80cm2) -IV fluids, normal saline at a rate of 100 mL/hour. -IV cefazolin antibiotics coverage for 24 hours as per Orthopedics. -Weight-bear as tolerated operative extremity. Crutch ambulation assistance PRN. Straight leg raise to be initiated starting tomorrow by the patient. -Ice, acetaminophen and/or oxycodone for pain as needed. -Knee and ankle range of motion and quad sets/straight leg raise regularly -Pt may possibly stay for 3 nights per ortho, w/ the need for revisit in the operating room for possible skin closure versus need for skin grafting. Status: Acute (2) Leukocytosis: Problem comment: -likely secondary to compartment syndrome -will follow-up. Status: Acute Assessment and Plan: -EKG ordered. 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 (3) Bradycardia: Problem comment: EKG shows sinus bradycardia with moderate criteria for LVH Follow-up as an outpatient with Cardiology might be needed to confirm that his LVH is not related to HOCM. -Discussed with the patient. He states that he does not have any symptoms as shortness of breath, chest pain, lightheadedness or presyncope. Status: Acute Plan As above Total Time Spent Total Time Spent: Time spent: Today I spent 75 minutes seeing the patient, discussing the patient with ER staff, reviewing Expanse and EPIC notes/diagnostics, discussing the care plan with our care time that includes, PT/OT, pharmacy, and documenting my impressions and plan in the medical record.
--- NOTE | 2024-06-17 19:42 | PC.NURSE ---
[facility] Hours: [id number] pt this shift calm and cooperative, alert and oriented. VSS. No c/o pain. Wound vac suctioning bloody discharge. Left leg slightly red around wound and edematous. Bilat pedal pulse strong. Tolerating regular diet. SL with adequate PO intake.
[2024-06-17] MEDS: SENNOSIDES 1 TAB TABLET 2 TAB PO (20:51)
[2024-06-17] MEDS: OXYCODONE 5 MG TABLET PO (21:29)
[2024-06-18] VITALS: BP 115/57; PULSE 49; RESP 14; O2SAT 97
[2024-06-18] MEDS: CEFAZOLIN 2 GM in 0.9 % SODIUM CHLORIDE Mini-bag 100 ML IVPB (03:14)
[2024-06-18 03:24] VITALS: BP 99/62; PULSE 48; RESP 14; O2SAT 96
--- NOTE | 2024-06-18 06:03 | PC.NURSE ---
Shift note: Vac wound dressing is C/D/I, bloody discharge, slight tingling sensation to the toes, pt able to move toes, feet and an entire leg. He rates pain 5-6/10, RN treated per eMAR and pt was able to rest throughout the night. Tolerates ambulation with no increase in pain
[2024-06-18] MEDS: OXYCODONE 5 MG TABLET PO ×2 (06:16→15:40)
[2024-06-18 07:35] VITALS: BP 99/62; PULSE 43; RESP 16; TEMP 37; O2SAT 98
[2024-06-18 08:45] VITALS: PULSE 43; RESP 16; O2SAT 98
--- NOTE | 2024-06-18 09:03 | P.ORPN_ITS ---
Subjective Subjective Date Seen: 06/18/24 Interval history: Subjectively josé is feeling ?so much better?. He looks more himself. He is more bright in his eyes and not grimacing. Not wincing. Not writhing. Denies fevers or chills. No chest pain or shortness of breath. Sitting/lying in bed comfortably. His mother is with him in the room as is his dog handler or trainer from [facility]. Ortho Exam Narrative Exam Narrative: In general, he is alert and oriented. Cooperative exam. Looks more himself. Appears to be well rested with good energy. Left lower extremity shows wound VAC in place. 100 mL in the canister. Neurologically able to plantar and dorsiflex as well as eversion and inversion. 4/5 strength only because of some discomfort in the left lateral calf region. Anterior and lateral compartments of the leg feel much softer than yesterday. Decreased sensation of the dorsum of his foot but intact in the medial and lateral aspects of his leg. Motor intact in the superficial and deep peroneal as well as plantar distribution at this time. Const Vital Signs, click to edit/add: Vital Signs - 24 hr 06/17/24 14:05 06/17/24 14:10 06/17/24 14:15 Temperature 98.3 F 98.1 F Pulse Rate 60 56 L 59 L Pulse Rate [Right Pulse Oximeter] Respiratory Rate 12 12 12 Blood Pressure 119/60 137/73 130/70 Blood Pressure [Left Arm] Blood Pressure [Right Arm] Pulse Oximetry 91 93 99 Oxygen Delivery Method Nasal Cannula Nasal Cannula Nasal Cannula Oxygen Flow Rate 6 6 6 06/17/24 14:20 06/17/24 14:25 06/17/24 14:30 Temperature 98.5 F Pulse Rate 56 L 59 L 54 L Pulse Rate [Right Pulse Oximeter] Respiratory Rate 14 14 14 Blood Pressure 132/72 134/77 132/78 Blood Pressure [Left Arm] Blood Pressure [Right Arm] Pulse Oximetry 100 96 96 Oxygen Delivery Method Nasal Cannula Nasal Cannula Room Air Oxygen Flow Rate 2 2 06/17/24 14:35 06/17/24 14:42 06/17/24 15:00 Temperature 98.6 F Pulse Rate 48 L 44 L 48 L Pulse Rate [Right Pulse Oximeter] Respiratory Rate 16 16 20 Blood Pressure 134/73 125/66 123/74 Blood Pressure [Left Arm] Blood Pressure [Right Arm] Pulse Oximetry 94 96 96 Oxygen Delivery Method Room Air Room Air Room Air Oxygen Flow Rate 06/17/24 15:15 06/17/24 15:30 06/17/24 15:45 Temperature 98.9 F Pulse Rate 45 L 50 L 52 L Pulse Rate [Right Pulse Oximeter] Respiratory Rate 20 18 20 Blood Pressure 125/73 118/75 126/72 Blood Pressure [Left Arm] Blood Pressure [Right Arm] Pulse Oximetry 96 96 97 Oxygen Delivery Method Room Air Room Air Room Air Oxygen Flow Rate 06/17/24 16:15 06/17/24 16:45 06/17/24 17:02 Temperature Pulse Rate 73 51 L Pulse Rate [Right Pulse Oximeter] Respiratory Rate 20 20 20 Blood Pressure 114/72 120/73 Blood Pressure [Left Arm] Blood Pressure [Right Arm] Pulse Oximetry 97 98 98 Oxygen Delivery Method Room Air Room Air Room Air Oxygen Flow Rate 06/17/24 17:45 06/17/24 18:45 06/17/24 20:00 Temperature 98.6 F Pulse Rate 56 L 85 49 L Pulse Rate [Right Pulse Oximeter] Respiratory Rate 18 18 16 Blood Pressure 126/67 122/64 116/62 Blood Pressure [Left Arm] Blood Pressure [Right Arm] Pulse Oximetry 98 97 96 Oxygen Delivery Method Room Air Room Air Room Air Oxygen Flow Rate 06/17/24 23:00 06/17/24 23:00 06/18/24 00:00 Temperature Pulse Rate Pulse Rate [Right Pulse Oximeter] 49 L Respiratory Rate 16 16 14 Blood Pressure Blood Pressure [Left Arm] 115/57 L Blood Pressure [Right Arm] Pulse Oximetry 97 97 Oxygen Delivery Method Room Air Room Air Oxygen Flow Rate 2 06/18/24 03:24 06/18/24 07:35 Temperature 98.6 F Pulse Rate Pulse Rate [Right Pulse Oximeter] 48 L 43 L Respiratory Rate 14 16 Blood Pressure Blood Pressure [Left Arm] 99/62 Blood Pressure [Right Arm] 99/62 Pulse Oximetry 96 98 Oxygen Delivery Method Room Air Room Air Oxygen Flow Rate Assessment and Plan Assessment and plan (1) Compartment syndrome: Problem details: -Left leg open fasciotomy of anterior and lateral compartments -Application of negative pressure wound dressing (16cm x 5cm = 80cm2) -saline lock IV fluids. Encourage oral intake -IV cefazolin antibiotics coverage for 24 hours as per Orthopedics. -Weight-bear as tolerated operative extremity. Crutch ambulation assistance PRN. Straight leg raise to be initiated starting tomorrow by the patient. -Ice, acetaminophen and/or oxycodone for pain as needed. -Knee and ankle range of motion and quad sets/straight leg raise regularly -Pt will need return trip to the operating room 06/20/2024 for possible skin closure. It is possible he may need to stay in the hospital for wound VAC treatment, but if a home wound VAC could be provided than he could discharge until that surgical day. Status: Acute
[2024-06-18 11:00] VITALS: BP 124/68; PULSE 60; RESP 18; TEMP 37.1; O2SAT 98
--- NOTE | 2024-06-18 14:53 | PC.NURSE ---
Pt pleasant and cooperative. Up with use of crutches. Wound Vac to LLE intact, no leaks draining dark red blood. Pt denies need for pain medications. Waiting home Wound Vac to be delivered then DC to home with mom present to care for him. Per conversation pt had with Dr. Jorgensen POC is to return for Wound Vac removal and closure of wound on Tuesday, 06/20. Waiting for call back from surgical team about plan, then DC.
[2024-06-18 15:00] VITALS: RESP 18; O2SAT 98
[2024-06-18] MEDS: ACETAMINOPHEN 325 MG TABLET 650 MG PO (15:40)
--- OUTSIDE RECORDS SUMMARY | 2024-06-21 15:41 | XMS_ITS | Clinical Summary ---
Author Organization [facility] Address [address] [address] Phone Care Team Providers Care Numerical Control Lathe Operator Name Role Phone Unavailable Primary Care [...] complete this topic Insurance GENERIC COMMERCIAL [place] [address]
--- OUTSIDE RECORDS SUMMARY | 2024-06-21 15:41 | XMS_ITS | Clinical Summary ---
Author Organization [facility] Address [address] [place] [id number] Phone Care Team Providers Care Wheel Roller Name Role Phone Identified, No Provider Primary [...] on file Legal Sex Male 10:09 AM MAIL ROOM Gender Identity Not on file Sexual Orientation Not on file Last Filed Vital Signs Vital Sign Reading Time Taken Comments Blood Pressure 129/63 09/17/2021 3:52 PM MAIL ROOM Pulse 70 09/17/2021 3:52 PM MAIL ROOM Temperature 36.7 ??C (98 ??F) 09/17/2021 3:52 PM MAIL ROOM Respiratory Rate - - Oxygen Saturation - - Inhaled Oxygen Concentration - - Weight 79.4 kg (175 lb) 09/17/2021 3:52 PM MAIL ROOM Height 182.9 cm (6') 09/17/2021 3:52 PM MAIL ROOM Body Mass Index 23.73 09/17/2021 3:52 PM MAIL ROOM Plan of Treatment Health Maintenance Due Date [...] patient's age to complete this topic Insurance [employer] MEDICAL PLAN [employer] Commercial (POS, PPO, etc) Address: [facility] [address] [place] [phone] [employer] Commercial (POS, PPO, etc) Address: [address] [place] [phone] Care Teams Wheel Roller Relationship Specialty Start Date End Date Identified, No Provider PCP - General 09/15/21
--- OUTSIDE RECORDS SUMMARY | 2024-06-21 15:41 | XMS_ITS | Clinical Summary ---
Author Organization [facility] Address [place], [place] [address] Care Team Providers Care Associate Manager Name Role Phone Provider, Non-Excellian Primary Care [...] age to complete this topic Care Teams Associate Manager Relationship Specialty Start Date End Date Provider, Non-Excellian . PCP - General 05/01/20
== END 2024-06-18 16:22 | disposition home or self-care (01) | DRG 983 ==
LOC: ED 12:46 → OR 13:12 → MEDSURG 15:13 → OR 16:27 → MEDSURG 06-18 14:16
PROVIDERS: Admitting Provider Orthopaedic Surgery Sports Medicine; Emergency Provider Family Medicine; PCP Internal Medicine; Visit Provider Orthopaedic Surgery Sports Medicine
PROC: 0KNT0ZZ Release Left Lower Leg Muscle, Open Approach (ICD-10-PCS; CPT 27650; principal; 2024-06-17 13:15)
DX: T79.A22A Traumatic compartment syndrome of left lower extremity, initial encounter (principal); S80.12XA Contusion of left lower leg, initial encounter; R00.1 Bradycardia, unspecified; Y93.61 Activity, american tackle football; X50.9XXA Other and unspecified overexertion or strenuous movements or postures, initial encounter; Y92.321 Football field as the place of occurrence of the external cause; Y99.8 Other external cause status
CPT/HCPCS: 00400; 73590; 73700; 93005; 99140; 99284; 99285; A9270; J0330; J0690; J1100; J1630; J1885; J2405; J2704; J3010; J3490; J7030; J7120

== ENCOUNTER 2024-06-20 08:42 | Day surgery (SDC) | payer MEDICAID, OTHER, SELFPAY ==
[2024-06-20] VITALS (11 sets, daily range): BP systolic 108–150; BP diastolic 74–122; PULSE 44–78; RESP 12–16; TEMP 36.6–37.1; O2SAT 97–100; BMI 24.7
--- OUTSIDE RECORDS SUMMARY | 2024-06-20 08:45 | XMS_ITS | Clinical Summary ---
Author Organization [facility] Address [address] [address] Phone Care Team Providers Care Healthcare Analyst Name Role Phone Unavailable Primary Care Provider [...] complete this topic Insurance GENERIC COMMERCIAL [place] [address] [address] [facility] Address: ATTN ??CLAIMS [address] [place] [address]
--- OUTSIDE RECORDS SUMMARY | 2024-06-20 08:45 | XMS_ITS | Clinical Summary ---
Author Organization [facility] Address [address] [place] [address] Phone Care Team Providers Care Furniture Sprayer Name Role Phone Identified, No Provider Primary [...] on file Legal Sex Male 10:09 AM SALES DRIVER Gender Identity Not on file Sexual Orientation Not on file Last Filed Vital Signs Vital Sign Reading Time Taken Comments Blood Pressure 129/63 09/17/2021 3:52 PM SALES DRIVER Pulse 70 09/17/2021 3:52 PM SALES DRIVER Temperature 36.7 ??C (98 ??F) 09/17/2021 3:52 PM SALES DRIVER Respiratory Rate - - Oxygen Saturation - - Inhaled Oxygen Concentration - - Weight 79.4 kg (175 lb) 09/17/2021 3:52 PM SALES DRIVER Height 182.9 cm (6') 09/17/2021 3:52 PM SALES DRIVER Body Mass Index 23.73 09/17/2021 3:52 PM SALES DRIVER Plan of Treatment Health Maintenance Due Date [...] patient's age to complete this topic Insurance [id number] MEDICAL PLAN COMMERCIAL [employer] MEDICAL PLAN COMMERCIAL Care Teams Furniture Sprayer Relationship Specialty Start Date End Date Identified, No Provider PCP - General 09/15/21
--- OUTSIDE RECORDS SUMMARY | 2024-06-20 08:45 | XMS_ITS | Clinical Summary ---
Author Organization [employer] [facility] Address [place], [place] [address] Care Team Providers Care Process Coach Name Role Phone Provider, Non-[facility] Primary Care [...] age to complete this topic Care Teams Process Coach Relationship Specialty Start Date End Date Provider, Non-Excellian . PCP - General 05/01/20
--- NOTE | 2024-06-20 12:24 | W.ANESCHARGE ---
Anesthesia Charges Start Date/Time Anesthesia Start Date: 06/20/24 Anesthesia Start Time: 11:31 Stop Date/Time Anesthesia Stop Date: 06/20/24 Anesthesia Stop Time: 12:52
[2024-06-20] MEDS: BUPIVACAINE 0.25% 30 ML INJECTION (12:30)
--- NOTE | 2024-06-20 12:57 | W.ANESCHARGE ---
Anesthesia Charges Start Date/Time Anesthesia Start Date: 06/20/24 Anesthesia Start Time: 11:31 Stop Date/Time Anesthesia Stop Date: 06/20/24 Anesthesia Stop Time: 12:52
[2024-06-20] MEDS: fentaNYL 100 MCG/2 ML inj 50 MCG IVP (13:05)
--- NOTE | 2024-06-20 13:33 | SUR.PHASEI ---
patient met discharge criteria per anesthesia
--- NOTE | 2024-06-20 14:35 | SUR.PHASEII ---
pt's wound vac in place. continuous suction set at 125.
--- NOTE | 2024-06-21 08:51 | P.ORPRC_ITS ---
Procedure Note Date of procedure: 06/20/24 Procedure: PREOPERATIVE DIAGNOSIS: 1. Left leg retained wound VAC. POSTOPERATIVE DIAGNOSIS: 1. Left leg retained wound VAC. 2. Delayed need for closure left leg fasciotomy 3. Nonviable muscle in the lateral compartment left leg PROCEDURE: 1. Left leg open excisional debridement including nonviable/ muscle lateral compartment 2. Left leg skin reapproximation/partial closure (simple) 3. Left leg exchange/re-application of negative pressure wound dressing (5 x 3 x 0.5 cm) SURGEON: Jacques Jorgensen M.D. COMPUTER PROCESSING SCHEDULER: Dann BHATT. Of note, an assistant education director was critical for this case to aid in patient positioning, tissue debridement, wound VAC application, and partial closure. 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 Non contact injury. He was brought to the operating room on 06/17/2020 for emergently for suspected compartment syndrome left leg involving both anterior and lateral compartments. At that time, the anterior compartment muscle looked healthy. The lateral compartment muscle looked thus clear and was concerning for nonviable tissue. However, given the acute nature, a wound VAC was applied and decision made to return to the operating room on 06/20/2024. FINDINGS: Anterior compartment showed healthy beefy red appropriately daija muscle when touched with the cautery. The lateral compartment showed best clear less healthy muscle and atypical striations. When touched with the cautery, no contraction was encountered. This muscle was felt to be nonviable/. Some hematoma was still encountered deep within the lateral compartment musculature. DESCRIPTION OF PROCEDURE: After a thorough discussion of risks, benefits, and alternatives, the patient was brought to the operating room and placed upon the operating table. Induction of anesthesia was undertaken as previously noted. [2g iv Ancef] was administered within 1 hr of incision preoperatively. Appropriate time-out was performed identifying proper patient, site, and procedure. The left lower extremity was prepped and draped in the appropriate sterile fashion using ChloraPrep. The left leg wound VAC was removed. The muscle tissue was assessed. Findings as above. Given the nonviable muscle in the lateral compartment, decision was made to perform an excisional debridement including the of muscle in this lateral compartment. It was frequently reassessed with cautery to evaluate if some contraction was achieved. On the more proximal or distal extent of the wound and even to some degree the deeper tissues, there seemed to be some contraction. Therefore, that tissue was left in place. The excisional debridement was performed with a combination of Metzenbaum scissors as well as rongeur. Thorough irrigation with normal saline was performed at various stages throug hout the procedure. Not pulsatile lavage, but rather normal saline running through cystoscopy tube was utilized. The wound was able to be reapproximated/partially closed with 2-0 nylon in vertical mattress fashion. This allowed attention to be relieved. However, small wound VAC was still applied within the lateral compartment musculature region. The surgical wound had decreased in size now measuring 5 x 3 x 0.5 cm rather than the previously noted 16 x 5 x 0.5 cm. The wound VAC/negative pressure dressing sponge was applied, sealed, and the suction applied and confirmed to have excellent seal. The patient was woken from anesthesia and transferred to the recovery room in stable condition. PLAN: 1. Weightbear as tolerated operative extremity. Crutch ambulation assistance PRN. Straight leg raise to be initiated starting tomorrow by the patient. 2. Ice, acetaminophen and/or oxycodone for pain as needed. 3. Knee and ankle range of motion and quad sets/straight leg raise regularly 4. Discharge to home with this portable wound VAC. Anticipate return to the operating room 06/22/2024 for removal of wound VAC sponge, completion of debridement of nonviable lateral compartment muscle, and completion of delayed primary closure.
== END 2024-06-20 14:33 | disposition home or self-care (01) ==
PROVIDERS: PCP Internal Medicine; Visit Provider Orthopaedic Surgery Sports Medicine
PROC: (CPT 11043; principal; 2024-06-20 11:00)
DX: T79.A22A Traumatic compartment syndrome of left lower extremity, initial encounter (principal); T79.6XXA Traumatic ischemia of muscle, initial encounter; Z48.01 Encounter for change or removal of surgical wound dressing
CPT/HCPCS: 11043; 01470; J0665; J2405; J2704; J3010

== ENCOUNTER 2024-06-22 11:44 | Day surgery (SDC) | payer MEDICAID, OTHER, SELFPAY ==
[2024-06-22] VITALS (9 sets, daily range): BP systolic 118–142; BP diastolic 68–90; PULSE 42–58; RESP 14–18; TEMP 36.6–37.1; O2SAT 97–100; BMI 24.4
--- OUTSIDE RECORDS SUMMARY | 2024-06-22 11:46 | XMS_ITS | Clinical Summary ---
Author Organization [facility] Address [place], [place] [address] Care Team Providers Care High Pressure Operator Name Role Phone Provider, Non-Excellian Primary Care [...] age to complete this topic Care Teams High Pressure Operator Relationship Specialty Start Date End Date Provider, Non-Excellian . PCP - General 05/01/20
--- OUTSIDE RECORDS SUMMARY | 2024-06-22 11:46 | XMS_ITS | Clinical Summary ---
Author Organization [facility] Address [address] [address] Phone Care Team Providers Care Electrical Service Technician Name Role Phone Unavailable Primary Care Provider [...] complete this topic Insurance GENERIC COMMERCIAL [place] [address] [facility] Address: ATTN ??CLAIMS [address] [place] [address]
--- OUTSIDE RECORDS SUMMARY | 2024-06-22 11:46 | XMS_ITS | Clinical Summary ---
Author Organization [facility] Address [address] [place] [address] Phone Care Team Providers Care Low Altitude Air Defense Officer Name Role Phone Identified, No Provider Primary [...] on file Legal Sex Male 10:09 AM BEE TENDER Gender Identity Not on file Sexual Orientation Not on file Last Filed Vital Signs Vital Sign Reading Time Taken Comments Blood Pressure 129/63 09/17/2021 3:52 PM BEE TENDER Pulse 70 09/17/2021 3:52 PM BEE TENDER Temperature 36.7 ??C (98 ??F) 09/17/2021 3:52 PM BEE TENDER Respiratory Rate - - Oxygen Saturation - - Inhaled Oxygen Concentration - - Weight 79.4 kg (175 lb) 09/17/2021 3:52 PM BEE TENDER Height 182.9 cm (6') 09/17/2021 3:52 PM BEE TENDER Body Mass Index 23.73 09/17/2021 3:52 PM BEE TENDER Plan of Treatment Health Maintenance Due Date [...] patient's age to complete this topic Insurance [email or web address] MEDICAL PLAN COMMERCIAL [employer] MEDICAL PLAN COMMERCIAL Care Teams Low Altitude Air Defense Officer Relationship Specialty Start Date End Date Identified, No Provider PCP - General 09/15/21
[2024-06-22] MEDS: SODIUM CHLORIDE 0.9 % (FLUSH) 10 ML SYRINGE IVF (12:36)
[2024-06-22] MEDS: CEFAZOLIN 2 GM in 0.9 % SODIUM CHLORIDE Mini-bag 100 ML IVPB (14:22)
--- NOTE | 2024-06-22 14:40 | SUR.OPER ---
Wound vac removed and 8 interrupted sutures were also removed prior to prepping the patients surgical area. Area approved my PA and .
--- NOTE | 2024-06-22 14:59 | W.ANESCHARGE ---
Anesthesia Charges Start Date/Time Anesthesia Start Date: 06/22/24 Anesthesia Start Time: 14:06 Stop Date/Time Anesthesia Stop Date: 06/22/24 Anesthesia Stop Time: 15:24
--- NOTE | 2024-06-22 15:12 | P.ORPRC_ITS ---
Procedure Note Date of procedure: 06/22/24 Procedure: PREOPERATIVE DIAGNOSIS: 1. Left leg retained negative pressure dressing/wound VAC 2. Left leg necrotic muscle following acute compartment syndrome. POSTOPERATIVE DIAGNOSIS: 1. Left leg retained negative pressure dressing/wound VAC 2. Left leg necrotic muscle following acute compartment syndrome. PROCEDURE: 1. Left leg removal of wound VAC/negative pressure dressing 2. Left leg closure of simple wound (16 cm in length) 3. Left leg excisional debridement including to the depth of muscle and fascia, but not bone SURGEON: Jacques Jorgensen MD. SURFACE PLATE INSPECTOR: MILLER Ferris - Of note, an administrative sales assistant was critical for this case to aid in patient positioning, tissue retraction, limb manipulation/positioning, patient safety, & closure. ANESTHESIA: General LMA EBL: 30 mL IMPLANTS: None TOURNIQUET: None COMPLICATIONS: None evident INDICATIONS: The patient is a pleasant 23-year-old male who sustained an acute compartment syndrome following injury on 06/16/2024. I was able to see the patient in the emergency room 06/17/2024. We brought him to the operating room for emergent left leg fasciotomy of the anterior and lateral compartments. We placed a negative pressure wound VAC dressing at that time. He return to the operating room on 06/20/2024 for wound VAC exchange and partial wound closure following debridement of the nonviable/necrotic muscle. Plan was to return to the operating room today on 06/22/2024 for wound VAC removal and debridement of any remaining nonviable, necrotic muscle as well as closure of the wound. DESCRIPTION OF PROCEDURE: Following a thorough discussion of risks, benefits, and alternatives consent was obtained and the operative extremity was marked. The patient was brought to the operating room and placed supine on the operating table. 2 g IV Ancef were administered within 1 hour incision preoperatively. Proper time-out was performed identifying proper patient, site, and procedure. The operative extremity was prepped and draped in the appropriate sterile fashion using ChloraPrep. The previous sutures and wound VAC were removed. The muscle was inspected. The anterior compartment still looked very healthy. The lateral compartment showed some healthy appearing muscle and some more necrotic/nonviable muscle. Cautery was utilized to stimulate the muscle and any that had some contraction we spared. There was still some muscle it did not consistent with a necrotic/nonviable tissue. This was excised with a combination of curette, rongeur, and Metzenbaum scissors. Thorough irrigation normal saline (3 L) was performed. Assessment of skin reapproximation showed that delayed primary closure would be possible with 2-0 nylon. Thus, closure with vertical mattress sutures was performed after hemostasis was confirmed. Soft dressings were applied, and the patient was awoken/transferred to the recovery room in stable condition. PLAN: 1. Encourage elevation of the operative extremity. 2. Range of motion of the operative extremity/digits as tolerated. 3. Ibuprofen, acetaminophen and/or oxycodone as needed for pain. 4. Follow up with me in 1 week for wound check and again at the 2 week josé for wound check and suture removal. 5. Weight bear as tolerated operative extremity. Crutch ambulation assistance.
[2024-06-22] MEDS: BUPIVACAINE 0.25% 30 ML INJECTION (15:15)
[2024-06-22] MEDS: fentaNYL 100 MCG/2 ML inj 50 MCG IVP (15:25)
--- NOTE | 2024-06-22 15:30 | W.ANESCHARGE ---
Anesthesia Charges Start Date/Time Anesthesia Start Date: 06/22/24 Anesthesia Start Time: 14:06 Stop Date/Time Anesthesia Stop Date: 06/22/24 Anesthesia Stop Time: 15:24
== END 2024-06-22 16:35 | disposition home or self-care (01) ==
PROVIDERS: PCP Internal Medicine; Visit Provider Orthopaedic Surgery Sports Medicine
PROC: (CPT 11043; principal; 2024-06-22 13:45)
DX: T79.A22A Traumatic compartment syndrome of left lower extremity, initial encounter (principal); Z48.01 Encounter for change or removal of surgical wound dressing; T79.6XXA Traumatic ischemia of muscle, initial encounter
CPT/HCPCS: 11043; 01470; J0665; J0690; J1100; J2250; J2405; J2704; J3010